=== PATIENT | female | born 1975 | race Caucasian/White ===

== ENCOUNTER 2023-05-01 15:04 | Outpatient (CLI) | payer MEDICAID, SELFPAY ==
--- NOTE | 2023-05-01 15:32 | CT_ITS ---
WS: [id number] CT ABDOMEN AND PELVIS NONCONTRAST HISTORY: HEMATURIA TECHNIQUE: Imaging performed through the abdomen and pelvis. Coronal and sagittal reformats are submi tted. All CT scans at [facility] use at least one of these dose optimization techniques: auto mated exposure control; mA and/or kV adjustment per patient size (includes targeted exams where dose is matched to clinical indication); or iterative reconstruction. DLP: 674.50 mGy.cm COMPARISON: None available. Lower thorax: Lung bases are clear. Visualized heart is normal. No hiatal hernia. Liver: Mild hepatomegaly and hepatic steatosis. No bile duct dilatation or mass. Gallbladder: Prior cholecystectomy. Pancreas: Normal size and attenuation. Normal pancreatic duct. No pancreatitis or mass. Spleen: Normal. Adrenal glands: Normal. No mass. Right kidney: Normal size kidney with no mass or hydronephrosis. Left kidney: Normal size kidney with no mass or hydronephrosis. Aorta: Mild atherosclerosis abdominal aorta with no aneurysm. No free fluid, intraperitoneal air or significant lymphadenopathy. GI tract: Normal noncontrast imaging of the stomach, small bowel and colon. No obstruction or wall th ickening. Normal appendix. Abdominal wall: Small umbilical hernia contains fat only. Pelvis: Normal urinary bladder. Normal size anteverted uterus. No free fluid or adenopathy. Osseous structures: Unremarkable. CT/CT kidney stone [id number] IMPRESSION: 1. No renal calcifications or obstruction. No perinephric stranding. 2. Negative urinary bladder. 3. Normal appendix. 4. Umbilical wall hernia contains fat only. 5. Prior cholecystectomy. 6. Hepatomegaly, mild.
== END 2023-05-01 15:05 | disposition home or self-care (01) ==
PROVIDERS: PCP Nurse Practitioner Occupational Health; Visit Provider Nurse Practitioner Occupational Health
DX: R31.9 Hematuria, unspecified (principal)
CPT/HCPCS: 74176

== ENCOUNTER → 2023-06-26 10:26 | Outpatient (BNVA) | payer MEDICAID, SELFPAY | PROVIDERS: PCP Nurse Practitioner Occupational Health; Referring Provider Nurse Practitioner Family; Visit Provider Psychiatry & Neurology Neurology | DX: G40.909 Epilepsy, unspecified, not intractable, without status epilepticus (principal) | CPT/HCPCS: 36415; 80053; 85025 ==

== ENCOUNTER → 2023-07-29 17:04 | Outpatient (BNVA) | payer MEDICAID, SELFPAY | PROVIDERS: PCP Nurse Practitioner Occupational Health; Visit Provider Psychiatry & Neurology Neurology | DX: G40.219 Localization-related (focal) (partial) symptomatic epilepsy and epileptic syndromes with complex partial seizures, intractable, without status epilepticus (principal) | CPT/HCPCS: 36415; 80053; 82607; 82746; 83735; 84439; 84443; 84481 ==

== ENCOUNTER → 2023-10-02 15:05 | Outpatient (BNVA) | payer MEDICAID, SELFPAY | PROVIDERS: PCP Nurse Practitioner Occupational Health; Visit Provider Psychiatry & Neurology Neurology | DX: G40.219 Localization-related (focal) (partial) symptomatic epilepsy and epileptic syndromes with complex partial seizures, intractable, without status epilepticus (principal) | CPT/HCPCS: 36415; 80299 ==

== ENCOUNTER 2024-01-14 13:49 | Inpatient (IN) | payer MEDICAID, SELFPAY ==
[2024-01-14 13:53] VITALS: BP 128/84; PULSE 112; RESP 16; TEMP 36.6; O2SAT 94; BMI 39.6
--- NOTE | 2024-01-14 14:28 | ED.C_ITS ---
HPI - Psych 2 General: Chief Complaint: Psychiatric Symptoms Stated Complaint: SI Time Seen by Provider: 01/14/24 14:04 Source: patient Mode of arrival: ambulatory Limitations: no limitations History of Present Illness: Patient is a 48-year-old female presents to ED today reporting she is suicidal. Patient states a while ago she was convinced by her best friend to move from [place] to [place], [place] with the best friend and her to babysit their child. Patient states since then the best friend has had another child and has now decided to stay home from work and thus does not need me anymore . She states there also has been some instances where her psychiatric health has interfered with their relationship. Patient states she is now homeless as she does not know anybody in [place]. She states she has a plan to overdose on all of her medication. MD complaint: suicidal ideation and feels depressed Onset (ago): day(s) Duration: constant History of same: Yes Context: significant life stressor Associated psychiatric symptoms: depression and suicidal ideation Associated symptoms: Reports depression and suicidal ideation; Deny auditory hallucinations, visual hallucinations or homicidal ideation Treatments prior to arrival: none If self harm: admits thoughts of self harm and has plan Review of Systems 2 Const: Denies: fever(s) or chills Card: Denies: chest pain, palpitations, lightheadedness or syncope Resp: Denies: dyspnea GI: Denies: abdominal pain, nausea, vomiting or diarrhea Skin/Breast: Denies: rash Neuro: Denies: headache(s) Psych: Reports: anxiety, depression, hopelessness and suicidal ideation; Denies: paranoia, visual hallucinations, auditory hallucinations or homicidal ideation [facility] ED 2 PFSH: Social History Smoking and tobacco/nicotine status: never used tobacco/nicotine Alcohol intake: never Substance/Drug Use: never Physical Exam 2 Const: COMMON NORMALS: no acute distress, patient oriented x3, alert and well nourished GENERAL APPEARANCE: cooperative and well kempt Resp: COMMON NORMALS: normal respiratory effort and clear to auscultation bilaterally AUSCULTATION: clear to auscultation bilaterally Cardio: COMMON NORMALS: regular rate and regular rhythm RATE: regular rate RHYTHM: regular rhythm Neuro: COMMON NORMALS: patient oriented x3 SENSORIUM/ORIENTATION: Yes alert Psych: COMMON NORMALS: mental status grossly normal, Normal thought process present, cooperative, normal affect, speech normal, activity/motor behavior normal, denies hallucinations and denies homicidal ideation APPEARANCE: Yes grossly normal and Yes well kempt ATTITUDE: Yes calm ACTIVITY/MOTOR BEHAVIOR: Yes appropriate eye contact and No psychomotor agitation SPEECH: Y es normal speech MOOD & AFFECT: Yes euthymic mood THOUGHT PROCESS: Normal thought process present MEMORY/COGNITION: Yes memory grossly intact and Yes cognition grossly intact INSIGHT: Good insight present (Psych) JUDGEMENT: Good judgement present (Psych) Course 2 Consultations: Consultation #1: Dr. Hunt-accepts to NPU Vital Signs: Vital signs: Vital Signs Temperature 97.8 F 01/14/24 13:53 Pulse Rate 112 H 01/14/24 13:53 Respiratory Rate 16 01/14/24 13:53 Blood Pressure 128/84 01/14/24 13:53 Pulse Oximetry 94 01/14/24 13:53 Oxygen Delivery Me thod Room Air 01/14/24 13:53 [facility] - Psych Medical Decision Making Patient will be a voluntary admit to NPU to Dr. Hunt for treatment of depression and suicidal ideations. Lab Data 01/14/24 14:33 01/14/24 14:33 Laboratory Results WBC 9.90 10^3/uL (3.29-11.43) 01/14/24 14:33 RBC 4.19 10^6/uL (3.85-5.65) 01/14/24 14:33 Hgb 13.10 g/dL (11.27-16.99) 01/14/24 14:33 Hct 39.3 % (36-47) 01/14/24 14:33 MCV 93.8 fl (85-98) 01/14/24 14:33 MCH 31.3 pg (27-33) 01/14/24 14: MCHC 33.3 g/dL (30-55) 01/14/24 14:33 RDW 14.5 % (12.1-15.1) 01/14/24 14:33 Plt Count 236 10^3/cmm (157-399) 01/14/24 14:33 MPV 9.6 fL (7.4-10.4) 01/14/24 14:33 Neut % (Auto) 66.5 % 01/14/24 14:33 Lymph % (Auto) 20.8 % 01/14/24 14:33 Winkler % (Auto) 9.0 % 01/14/24 14:33 Eos % (Auto) 2.0 % 01/14/24 14:33 Baso % (Auto) 0.9 % 01/14/24 14:33 Neut # (Auto) 6.58 10^3/uL (1.8-7.7) 01/14/24 14: Lymph # (Auto) 2.1 10^3/uL (0.8-4.8) 01/14/24 14:33 Winkler # (Auto) 0.9 10^3/uL (0.2-0.9) 01/14/24 14: Eos # (Auto) 0.2 10^3/uL (0.0-0.8) 01/14/24 14: Baso # (Auto) 0.1 10^3/uL (0.0-0.1) 01/14/24 14: Nucleated RBC % (auto) 0 % 01/14/24 14: Nucleated RBCs # 0.0 /100WBC 01/14/24 14:33 Sodium 137 mmol/L (136-145) 01/14/24 14:33 Potassium 4.0 mmol/L (3.5-5.1) 01/14/24 14: Chloride 101 mmol/L (98-107) 01/14/24 14: Carbon Dioxide 24 mmol/L (22-29) 01/14/24 14:33 Anion Gap 16.0 (5-19) 01/14/24 14:33 BUN 14 mg/dL (6-20) 01/14/24 14:33 Creatinine 1.0 mg/dL (0.5-0.9) H 01/14/24 14:33 GFR Calculation 58.7 mL/min (90-130) L 01/14/24 14:33 Glucose 89 mg/dL (65-115) 01/14/24 14:33 Calculated Osmolality 284 mOsm/kg (285-295) L 01/14/24 14:33 Calcium 9.2 mg/dL (8.5-10.5) 01/14/24 14:33 Total Bilirubin 0.3 mg/dL (0.15-1.2) 01/14/24 14:33 AST 21 U/L (0-32) 01/14/24 14:33 ALT 29 U/L (0-33) 01/14/24 14:33 Alkaline Phosphatase 109 U/L (35-105) H 01/14/24 14:33 Total Protein 7.3 g/dL (6.6-8.7) 01/14/24 14:33 Albumin 4.1 g/dL (3.5-5.2) 01/14/24 14:33 Globulin 3.2 g/dL (1.3-4.6) 01/14/24 14:33 Salicylates < 0.3 mg/dL (3-10) L 01/14/24 14:33 Urine Opiates Screen Negative ng/mL (Negative) 01/14/24 14:22 Acetaminophen < 5.0 ug/mL (10-30) L 01/14/24 14:33 Ur Barbiturates Screen Negative ng/mL (Negative) 01/14/24 14:22 Ur Phencyclidine Scrn Negative ng/mL (Negative) 01/14/24 14:22 Ur Amphetamines Screen Negative ng/mL (Negative) 01/14/24 14:22 U Benzodiazepines Scrn Positive ng/mL (Negative) H 01/14/24 14:22 Urine Cocaine Screen Negative ng/mL (Negative) 01/14/24 14:22 U Marijuana (THC) Screen Negative ng/mL (Negative) 01/14/24 14:22 Ethyl Alcohol < 10 mg/dL (0-10) 01/14/24 14:33 No radiology studies performed this visit Discharge Plan Discharge Patient Disposition: Admitted As Inpatient Clinical Impression: Suicidal ideation Depression Qualifiers: Depression Type: major depressive disorder Major depression recurrence: r ecurrent Active/Remission status: currently active Major depression episode severity: severe Psychotic features: without psychotic features Qualified Code(s): F33.2 - Major depressive disorder, recurrent severe without psychotic features Condition: Stable Coding Level of Care Code ED Rodent Control Worker for Angela Wade
[2024-01-14 14:41] LABS: Basophils # 0.1 10^3/uL (0.0-0.1); Basophils % 0.9 %; Eosinophils # 0.2 10^3/uL (0.0-0.8); Hematocrit 39.3 % (36-47); Lymphocytes # 2.1 10^3/uL (0.8-4.8); Lymphocytes % 20.8 %; Mean Corpuscular HGB Conc 33.3 g/dL (30-55); Mean Corpuscular Hemoglobin 31.3 pg (27-33); Mean Corpuscular Volume 93.8 fl (85-98); Mean Platelet Volume 9.6 fL (7.4-10.4); Monocytes # 0.9 10^3/uL (0.2-0.9); Neutrophils # 6.58 10^3/uL (1.8-7.7); Neutrophils % 66.5 %; Nucleated Red Blood Cells % 0 %; Platelet Count 236 10^3/cmm (157-399); Red Blood Count 4.19 10^6/uL (3.85-5.65); Red Cell Distribution Width 14.5 % (12.1-15.1)
[2024-01-14 14:54] LABS: Amphetamines Screen Urine Negative (Negative); Barbiturates Screen Urine Negative (Negative); Benzodiazepines Screen Urine Positive (Negative); Cocaine Screen Urine Negative (Negative); Opiate Screen Urine Negative (Negative); PCP Screen Urine Negative (Negative); THC Screen Urine Negative (Negative)
[2024-01-14 14:55] LABS: Alanine Aminotransferase 29 U/L (0-33); Albumin Level 4.1 g/dL (3.5-5.2); Alkaline Phosphatase 109 U/L (35-105); Aspartate Amino Transferase 21 U/L (0-32); Blood Urea Nitrogen 14 mg/dL (6-20); Calcium 9.2 mg/dL (8.5-10.5); Carbon Dioxide 24 mmol/L (22-29); Chloride 101 mmol/L (98-107); Globulin 3.2 g/dL (1.3-4.6); Glomerular Filtration Rate 58.7 mL/min (90-130); Glucose 89 mg/dL (65-115); Osmolality Calculated 284 mOsm/kg (285-295); Sodium 137 mmol/L (136-145); Total Bilirubin 0.3 mg/dL (0.15-1.2); Total Protein 7.3 g/dL (6.6-8.7)
[2024-01-14 14:57] LABS: Acetaminophen < 5.0 ug/mL (10-30); Alcohol Level < 10 mg/dL (0-10); Salicylate < 0.3 mg/dL (3-10)
[2024-01-14 16:03] VITALS: BP 77/50; PULSE 118; RESP 18; TEMP 36.3; O2SAT 98
--- NOTE | 2024-01-14 17:30 | PC.NURSE ---
Admission Note. pt is a 48 yo female that arrived by wheelchair from ER at 1603. Pt stated she came in today because she cant go on living. Pt states that she is recently homeless and she cant take living anymore. Pt stated i had a plan to go and get 2 gallons of chocolate milk to make the pills go down easier and i would take every pill i had. Pt has a hx of past suicide attempts she tried to jump in front of traffic and she tried to gas herself. Pts medical hx includes chronic fatigue syndrome, seizure disorder, and celiac disease. Pt stated that she thinks she has been having visual hallucinations, she stated i have been seeing a armadillo everywhere but it disappears. During admission assessment pt denies SI/HI and denies having any auditory or visual hallucinations at this time.
[2024-01-14] MEDS: hyDROXYzine 25 mg Capsule 50 MG PO (17:54)
[2024-01-14 19:47] VITALS: BP 135/90; PULSE 109; RESP 18; TEMP 37; O2SAT 95
[2024-01-14] MEDS: prazosin 5 mg Capsule PO (20:07)
[2024-01-14] MEDS: lithium carbonate ER 450 mg Tablet PO (20:07)
[2024-01-14] MEDS: mirtazapine 30 mg Tablet PO (20:07)
[2024-01-14] MEDS: lacosamide 50 mg Tablet 200 MG PO (20:07)
[2024-01-14] MEDS: OLANZapine 10 mg TABLET 20 MG PO (20:07)
[2024-01-15 06:00] VITALS: BP 115/78; PULSE 106; RESP 18; TEMP 36.6; O2SAT 94
[2024-01-15] MEDS: lacosamide 50 mg Tablet 100 MG PO (06:08)
[2024-01-15] MEDS: lithium carbonate ER 450 mg Tablet PO ×2 (07:32→20:24)
[2024-01-15] MEDS: buPROPion XL (24 HR) 150 mg Tablet PO (07:32)
[2024-01-15] MEDS: loperamide 2 mg Capsule PO (08:59)
[2024-01-15] MEDS: LORazepam 2 mg Tablet PO (11:43)
[2024-01-15 14:00] VITALS: BP 123/85; PULSE 96; RESP 16; TEMP 36.6; O2SAT 97
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
[2024-01-15] MEDS: prazosin 5 mg Capsule PO (20:23)
[2024-01-15] MEDS: lacosamide 50 mg Tablet 200 MG PO (20:24)
[2024-01-15] MEDS: OLANZapine 10 mg TABLET 20 MG PO (20:24)
[2024-01-15] MEDS: mirtazapine 30 mg Tablet PO (20:24)
[2024-01-15 21:14] VITALS: BP 127/78; PULSE 94; RESP 18; TEMP 36.9; O2SAT 97
[2024-01-16 06:00] VITALS: BP 158/84; PULSE 101; RESP 18; TEMP 36.8; O2SAT 95
[2024-01-16] MEDS: buPROPion XL (24 HR) 150 mg Tablet PO (08:44)
[2024-01-16] MEDS: lithium carbonate ER 450 mg Tablet PO ×2 (08:44→19:59)
[2024-01-16] MEDS: lacosamide 50 mg Tablet 100 MG PO (08:45)
[2024-01-16 14:00] VITALS: BP 118/81; PULSE 93; RESP 20; TEMP 36.8; O2SAT 96
[2024-01-16] MEDS: LORazepam 2 mg Tablet PO (14:40)
--- NOTE | 2024-01-16 14:49 | P.NPUPN_ITS ---
Subjective NPU 2 Subjective: patient is a 48-year-old white female with borderline personality traits, and bipolar depression admitted with suicidal ideation. The patient had continued to endorse feeling depressed. She had reported no side effects from her current medication. She had reported feeling relieved that she would get additional help as she had had a visit with staff member from the [facility] to receive additional case management services. She had endorsed some feelings of hopelessness. She had reported having reasonable stability with her manic symptoms but reported that the depression had been more prominent. The patient was informed that she was not currently on a medication to target bipolar depression and the patient had reported a previous trial unsuccessfully with a medication for bipolar depression which was Seroquel. She had endorsed some feelings of sadness and reported some concerns regarding abandonment. She had been interested in alternative options as well for managing her mood and the treatment team had discussed with her the potential benefits of omega-3 fatty acid supplementation for treating bipolar depression. She had continued to endorse low energy. Mental Status Exam 2 MSE Comments: She is a casually dressed female who appeared her stated age. She was alert and oriented to person place time and situation. There was no evidence of any abnormal involuntary motor movements tics or tremors appreciated. There was evidence of mild to moderate psychomotor retardation. Her mood was described as depressed. Her affect was mood congruent and restricted in range today. Her thought process was linear and logical. Thought content showed evidence of suicidal ideation with no plan today. She denied any homicidal ideation. She did not appear to be responding to internal stimuli. There is no clear evidence of delusional thinking. Her speech was normal in regards to rate rhythm and prosody. Her insight was limited. Her judgment is poor. Her impulse control appeared guarded at this time. Vitals/I&O/Wt Last Vital Signs Temp 98.2 F 01/16/24 06:00 Pulse 101 H 01/16/24 06:00 Resp 18 01/16/24 06:00 BP 158/84 01/16/24 06:00 Pulse Ox 95 01/16/24 06:00 O2 Del Method Room Air 01/16/24 06:00 Data NPU 01/14/24 14:33 01/14/24 14:33 A&P Assessment and plan (1) Complex posttraumatic stress disorder: (2) Dysthymia: (3) Borderline personality disorder: (4) Suicidal ideation: Plan 48-year-old female admitted voluntarily with a history of complex PTSD and depression with suicidal ideation with increased stress from recent homelessness and lack of social supports. 1. ?Encourage individual, group and milieu therapy. 2. Recommend sober living treatment at the highest level of care to which the patient is willing to commit. 3. Continue q-15 minute checks for safety 4. Reduce remeron 15mg at night, add latuda 20mg to target bipolar depression, reduce zyprexa to 15mg at night, continue lithium as prescribed. Involuntary Hold Information 2 96 Hour Hold: 96 Hour Involuntary Admission: No Attestations NPU 2 Medical Necessity Statement*: Inpatient hospitalization is medically necessary and deemed to be the clinically appropriate intervention at this time. Medications will be initiated and increased as clinically indicated. Patient's likely length of stay is 3 to 5 days. Coding Level of Care Code Acute Code for g Fwd Diagnoses Complex posttraumatic stress disorder F43.10 Dysthymia F34.1 Borderline personality disorder F60.3 Suicidal ideation R45.851
[2024-01-16] MEDS: lurasidone 20 mg Tablet PO (18:21)
[2024-01-16 19:27] VITALS: BP 120/81; PULSE 98; RESP 16; TEMP 36.5; O2SAT 96
[2024-01-16] MEDS: lacosamide 50 mg Tablet 200 MG PO (19:58)
[2024-01-16] MEDS: mirtazapine 30 mg Tablet 15 MG PO (19:58)
[2024-01-16] MEDS: prazosin 5 mg Capsule PO (19:59)
[2024-01-16] MEDS: OLANZapine 10 mg TABLET 15 MG PO (19:59)
[2024-01-16] MEDS: acetaminophen 325 mg Tablet 650 MG PO (20:48)
[2024-01-17] MEDS: lacosamide 50 mg Tablet 100 MG PO (05:55)
[2024-01-17 06:00] VITALS: BP 130/81; PULSE 95; RESP 16; TEMP 36.9; O2SAT 95
[2024-01-17] MEDS: buPROPion XL (24 HR) 150 mg Tablet PO (08:17)
[2024-01-17] MEDS: lithium carbonate ER 450 mg Tablet PO ×2 (08:17→20:31)
[2024-01-17 14:00] VITALS: BP 109/95; PULSE 92; RESP 13; TEMP 36.7; O2SAT 95
--- NOTE | 2024-01-17 17:53 | P.NPUPN_ITS ---
Subjective NPU 2 Subjective: patient is a 48-year-old white female with borderline personality traits, and bipolar depression admitted with suicidal ideation. Patient continues to endorse depressed mood. She had reported willingness to consider changes in medication. She had reported lithium was helpful at controlling her moods. She had reported being seizure-free over the past few years. She had reported no worsening mood with the reduction in mirtazapine at this time. We had discussed beginning a cross titration off of Zyprexa and onto Latuda in attempts to help with her bipolar depression. She reported no problems with worsening sleep with the 5 mg reduction in Zyprexa today. Mental Status Exam 2 MSE Comments: She is a casually dressed female who appeared her stated age. She was alert and oriented to person place time and situation. There was no evidence of any abnormal involuntary motor movements tics or tremors appreciated. There was evidence of mild to moderate psychomotor retardation. Her mood was described as depressed. Her affect remained flat. Her thought process was linear and logical. Thought content showed no evidence of suicidal ideation with no plan today. She denied any homicidal ideation. She did not appear to be responding to internal stimuli. There is no clear evidence of delusional thinking. Her speech was normal in regards to rate rhythm and prosody. Her insight was limited. Her judgment is poor. Her impulse control appeared guarded at this time. Vitals/I&O/Wt Last Vital Signs Temp 98.1 F 01/17/24 14:00 Pulse 92 01/17/24 14:00 Resp 13 01/17/24 14:00 BP 109/95 01/17/24 14:00 Pulse Ox 95 01/17/24 14:00 O2 Del Method Room Air 01/17/24 06:00 Data NPU 01/14/24 14:33 01/14/24 14:33 A&P Assessment and plan (1) Complex posttraumatic stress disorder: (2) Dysthymia: (3) Borderline personality disorder: (4) Suicidal ideation: Plan 48-year-old female admitted voluntarily with a history of complex PTSD and depression with suicidal ideation with increased stress from recent homelessness and lack of social supports. 1. ?Encourage individual, group and milieu therapy. 2. Recommend sober living treatment at the highest level of care to which the patient is willing to commit. 3. Continue q-15 minute checks for safety 4.Discontinue remeron 15mg at night, add latuda 20mg to target bipolar depression, reduce zyprexa to 15mg at night, continue lithium as prescribed with plan for lithium level in 3 days. Involuntary Hold Information 2 96 Hour Hold: 96 Hour Involuntary Admission: No Attestations NPU 2 Medical Necessity Statement*: Inpatient hospitalization is medically necessary and deemed to be the clinically appropriate intervention at this time. Medications will be initiated and increased as clinically indicated. Patient's likely length of stay is 3 to 5 days. Coding Level of Care Code Acute Code for g Fwd Diagnoses Complex posttraumatic stress disorder F43.10 Dysthymia F34.1 Borderline personality disorder F60.3 Suicidal ideation R45.851
[2024-01-17] MEDS: lurasidone 20 mg Tablet PO (17:59)
[2024-01-17] MEDS: lacosamide 50 mg Tablet 200 MG PO (20:31)
[2024-01-17] MEDS: OLANZapine 10 mg TABLET 15 MG PO (20:31)
[2024-01-17] MEDS: prazosin 5 mg Capsule PO (20:32)
[2024-01-17 20:39] VITALS: BP 129/84; PULSE 92; RESP 18; TEMP 36.8; O2SAT 94
[2024-01-18 06:00] VITALS: BP 99/66; PULSE 96; RESP 16; TEMP 36.7; O2SAT 91
[2024-01-18] MEDS: lacosamide 50 mg Tablet 100 MG PO (06:15)
[2024-01-18] MEDS: lithium carbonate ER 450 mg Tablet PO ×2 (07:58→19:58)
[2024-01-18] MEDS: buPROPion XL (24 HR) 150 mg Tablet PO (07:58)
--- NOTE | 2024-01-18 13:27 | P.NPUPN_ITS ---
Subjective NPU 2 Subjective: patient is a 48-year-old white female with borderline personality traits, and bipolar depression admitted with suicidal ideation. The patient had reported that she had slept adequately. She reported that she still felt sad. She was quiet and redirectable on the milieu. She had attended groups. She reported that she was hopeful about receiving additional services and excited about starting psychotherapy again on an outpatient basis. The patient had reported no decline in mood with the discontinuation of Remeron last night. The patient reported continued lack of interest in completing daily activities and reported feeling lethargic. Mental Status Exam 2 MSE Comments: She is a casually dressed female who appeared her stated age. She was alert and oriented to person place time and situation. There was no evidence of any abnormal involuntary motor movements tics or tremors appreciated. There was evidence of mild to moderate psychomotor retardation. Her mood was depressed. Her affect remained restricted in range and mood congruent. Her thought process was linear and logical. Thought content showed no evidence of suicidal ideation with no plan today. She denied any homicidal ideation. She did not appear to be responding to internal stimuli. There is no clear evidence of delusional thinking. Her speech was normal in regards to rate rhythm and prosody. Her insight was limited. Her judgment is poor. Her impulse control appeared guarded at this time. Vitals/I&O/Wt Last Vital Signs Temp 98.0 F 01/18/24 06:00 Pulse 96 01/18/24 06:00 Resp 16 01/18/24 06:00 BP 99/66 01/18/24 06:00 Pulse Ox 91 01/18/24 06:00 O2 Del Method Room Air 01/18/24 06:00 Data NPU 01/14/24 14:33 01/14/24 14:33 A&P Assessment and plan (1) Complex posttraumatic stress disorder: (2) Dysthymia: (3) Borderline personality disorder: (4) Suicidal ideation: Plan 48-year-old female admitted voluntarily with a history of complex PTSD and depression with suicidal ideation with increased stress from recent homelessness and lack of social supports. 1. ?Encourage individual, group and milieu therapy. 2. Recommend sober living treatment at the highest level of care to which the patient is willing to commit. 3. Continue q-15 minute checks for safety 4. Initiate latuda at 40mg and decrease zyprexa to 10mg at night , continue lithium as prescribed with plan for lithium level tommorow. Patient's GFR is less than 60 (58.7) which may be a concern as a marker for potential CKD in future. Involuntary Hold Information 2 96 Hour Hold: 96 Hour Involuntary Admission: No Attestations NPU 2 Medical Necessity Statement*: Inpatient hospitalization is medically necessary and deemed to be the clinically appropriate intervention at this time. Medications will be initiated and increased as clinically indicated. Patient's likely length of stay is 3 to 5 days. Coding Level of Care Code Acute Code for Chg Fwd Diagnoses Complex posttraumatic stress disorder F43.10 Dysthymia F34.1 Borderline personality disorder F60.3 Suicidal ideation R45.851
[2024-01-18 14:00] VITALS: BP 112/76; PULSE 84; RESP 16; TEMP 37.1; O2SAT 94
[2024-01-18] MEDS: LORazepam 2 mg Tablet PO (14:26)
[2024-01-18] MEDS: lurasidone 20 mg Tablet 40 MG PO (18:08)
[2024-01-18] MEDS: OLANZapine 10 mg TABLET PO (19:58)
[2024-01-18] MEDS: lacosamide 50 mg Tablet 200 MG PO (19:59)
[2024-01-18] MEDS: prazosin 5 mg Capsule PO (19:59)
[2024-01-18 20:13] VITALS: BP 125/87; PULSE 99; RESP 18; TEMP 36.4; O2SAT 94
[2024-01-19 06:00] VITALS: BP 111/77; PULSE 92; RESP 16; TEMP 36.8; O2SAT 95
[2024-01-19] MEDS: lacosamide 50 mg Tablet 100 MG PO (06:00)
[2024-01-19] MEDS: lithium carbonate ER 450 mg Tablet PO ×2 (08:55→20:00)
[2024-01-19] MEDS: buPROPion XL (24 HR) 150 mg Tablet PO (08:55)
[2024-01-19 10:02] LABS: Chol HDL Ratio 3.69 mg/dL (0.0-4.40); Cholesterol 188 mg/dL (0-200); HDL Cholesterol 51 mg/dL (60-100); LDL Cholesterol Calculated 101 mg/dL (50-129); LDL HDL Ratio 1.98 RATIO (0.00-3.22); Lithium 0.6 mmol/L (0.6-1.2); Triglycerides 180 mg/dL (0-150)
[2024-01-19 14:00] VITALS: BP 114/82; PULSE 83; RESP 16; TEMP 36.8; O2SAT 99
[2024-01-19] MEDS: LORazepam 2 mg Tablet PO (15:03)
--- NOTE | 2024-01-19 17:36 | P.NPUPN_ITS ---
Subjective NPU 2 Subjective: patient is a 48-year-old white female with borderline personality traits, and bipolar depression admitted with suicidal ideation. Patient had reported feeling more depressed today. She had reported some feelings of hopelessness. She reported having days in the past like this and stated that she often struggles with getting out of bed. She had been more isolative today on the milieu. She had reported that she was able to attend groups. Patient was informed of some concern regarding lithium with her decreased glomerular filtration rate. She reported no difference in regards to sleep with the reduction in Zyprexa. She did not endorse any manic symptoms. She had reported no thoughts of self injury. Mental Status Exam 2 MSE Comments: She is a casually dressed female who appeared her stated age. She was alert and oriented to person place time and situation. There was no evidence of any abnormal involuntary motor movements tics or tremors appreciated. There was evidence of moderate psychomotor retardation. Her mood was reported as more sad today. Her affect remained restricted in range and mood congruent. Her thought process was linear and logical. Thought content showed no evidence of suicidal ideation with no plan today. She denied any homicidal ideation. She did not appear to be responding to internal stimuli. There is no clear evidence of delusional thinking. Her speech was normal in regards to rate rhythm and prosody. Her insight was limited. Her judgment is poor. Her impulse control appeared guarded at this time. Vitals/I&O/Wt Last Vital Signs Temp 98.3 F 01/19/24 14:00 Pulse 83 01/19/24 14:00 Resp 16 01/19/24 14:00 BP 114/82 01/19/24 14:00 Pulse Ox 99 01/19/24 14:00 O2 Del Method Room Air 01/19/24 14:00 Weight last 48 hrs Weight 97.636 kg Data NPU 01/14/24 14:33 01/14/24 14:33 A&P Assessment and plan (1) Complex posttraumatic stress disorder: (2) Dysthymia: (3) Borderline personality disorder: (4) Suicidal ideation: Plan 48-year-old female admitted voluntarily with a history of complex PTSD and depression with suicidal ideation with increased stress from recent homelessness and lack of social supports. 1. ?Encourage individual, group and milieu therapy. 2. Recommend sober living treatment at the highest level of care to which the patient is willing to commit. 3. Continue q-15 minute checks for safety 4. Continue latuda at 40mg and zyprexa to 10mg at night , lithium as prescribed with patient lithium level therapeutic at .6, patient has elevated TG at 180 and may benefit from EPA/DHA to target elevated TG. Patient's GFR is less than 60 (58.7) which may be a concern as a marker for potential CKD in future. MAY SWITCH To Immediate Release [place] to help with potential kidney issues. Involuntary Hold Information 2 96 Hour Hold: 96 Hour Involuntary Admission: No Attestations NPU 2 Medical Necessity Statement*: Inpatient hospitalization is medically necessary and deemed to be the clinically appropriate intervention at this time. Medications will be initiated and increased as clinically indicated. Patient's likely length of stay is 3 to 5 days. Coding Level of Care Code Acute Code for Chg Fwd Diagnoses Complex posttraumatic stress disorder F43.10 Dysthymia F34.1 Borderline personality disorder F60.3 Suicidal ideation R45.851
[2024-01-19] MEDS: lurasidone 20 mg Tablet 40 MG PO (18:01)
[2024-01-19] MEDS: lacosamide 50 mg Tablet 200 MG PO (20:00)
[2024-01-19] MEDS: OLANZapine 10 mg TABLET PO (20:00)
[2024-01-19] MEDS: prazosin 5 mg Capsule PO (20:00)
[2024-01-19 20:26] VITALS: BP 106/72; PULSE 85; RESP 18; TEMP 36.3; O2SAT 96
[2024-01-20 06:00] VITALS: BP 110/73; PULSE 89; RESP 16; TEMP 36.3; O2SAT 95
[2024-01-20] MEDS: lacosamide 50 mg Tablet 100 MG PO (06:03)
[2024-01-20] MEDS: lithium carbonate ER 450 mg Tablet PO (08:28)
[2024-01-20] MEDS: buPROPion XL (24 HR) 150 mg Tablet PO (08:28)
[2024-01-20] MEDS: LORazepam 2 mg Tablet PO (12:35)
[2024-01-20 12:40] VITALS: BP 124/88; PULSE 105; RESP 14; TEMP 36.6; O2SAT 96
--- NOTE | 2024-01-20 15:30 | P.NPUPN_ITS ---
Subjective NPU 2 Subjective: patient is a 48-year-old white female with borderline personality traits, and bipolar depression admitted with suicidal ideation. The patient reported no side effects from her medications. She reported no change in sleep patterns with the continued tapering of Zyprexa. Patient reported no feelings of hopelessness. She had been less isolative on the milieu. She reported that she was happy about having a place to stay upon discharge. She reported no feelings of hopelessness. Patient was agreeable to changing lithium to immediate release in an attempt to help with the patient's potential risk of chronic kidney disease which appeared to be higher when taking the extended release version of lithium. Patient reported no change in appetite. Mental Status Exam 2 MSE Comments: She is a casually dressed female who appeared her stated age. She was alert and oriented to person place time and situation. There was no evidence of any abnormal involuntary motor movements tics or tremors appreciated. There was evidence of mild psychomotor retardation. Her mood was reported as okay today. Her affect remained restricted in range and mood congruent. Her thought process was linear and logical. Thought content showed no evidence of suicidal ideation with no plan today. She denied any homicidal ideation. She did not appear to be responding to internal stimuli. There is no clear evidence of delusional thinking. Her speech was normal in regards to rate rhythm and prosody. Her insight was limited. Her judgment is poor. Her impulse control appeared guarded at this time. Vitals/I&O/Wt Last Vital Signs Temp 97.8 F 01/20/24 12:40 Pulse 105 H 01/20/24 12:40 Resp 14 01/20/24 12:40 BP 124/88 01/20/24 12:40 Pulse Ox 96 01/20/24 12:40 O2 Del Method Room Air 01/20/24 06:00 Weight last 48 hrs Weight 97.636 kg Data NPU 01/14/24 14:33 01/14/24 14:33 A&P Assessment and plan (1) Complex posttraumatic stress disorder: (2) Dysthymia: (3) Borderline personality disorder: (4) Suicidal ideation: Plan 48-year-old female admitted voluntarily with a history of complex PTSD and depression with suicidal ideation with increased stress from recent homelessness and lack of social supports. 1. ?Encourage individual, group and milieu therapy. 2. Recommend sober living treatment at the highest level of care to which the patient is willing to commit. 3. Continue q-15 minute checks for safety 4. Continue latuda at 40mg and zyprexa to 10mg at night , Switch to lithium 300mg tid today. Involuntary Hold Information 2 96 Hour Hold: 96 Hour Involuntary Admission: No Attestations NPU 2 Medical Necessity Statement*: Inpatient hospitalization is medically necessary and deemed to be the clinically appropriate intervention at this time. Medications will be initiated and increased as clinically indicated. Patient's likely length of stay is 3 to 5 days. Coding Level of Care Code Acute Code for Chg Fwd Diagnoses Complex posttraumatic stress disorder F43.10 Dysthymia F34.1 Borderline personality disorder F60.3 Suicidal ideation R45.851
[2024-01-20] MEDS: lurasidone 20 mg Tablet 40 MG PO (18:30)
[2024-01-20 20:11] VITALS: BP 117/78; PULSE 102; RESP 18; TEMP 36.8; O2SAT 96
[2024-01-20] MEDS: OLANZapine 10 mg TABLET PO (20:44)
[2024-01-20] MEDS: lithium carbonate 300 mg Capsule PO (20:44)
[2024-01-20] MEDS: lacosamide 50 mg Tablet 200 MG PO (20:44)
[2024-01-20] MEDS: prazosin 5 mg Capsule PO (20:44)
[2024-01-21 06:00] VITALS: BP 111/75; PULSE 88; RESP 16; TEMP 35.8; O2SAT 94
[2024-01-21] MEDS: lacosamide 50 mg Tablet 100 MG PO (06:13)
[2024-01-21] MEDS: lithium carbonate 300 mg Capsule PO ×2 (08:03→14:38)
[2024-01-21] MEDS: buPROPion XL (24 HR) 150 mg Tablet PO (08:03)
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
[2024-01-21 13:04] VITALS: BP 111/75; PULSE 88; RESP 16; TEMP 35.8; O2SAT 94
== END 2024-01-21 15:30 | disposition home or self-care (01) | DRG 882 ==
LOC: ER 15:15 → NP 15:32
PROVIDERS: Admitting Provider Psychiatry & Neurology Psychiatry; Emergency Provider Physician Assistant; PCP Nurse Practitioner Occupational Health; Visit Provider Psychiatry & Neurology Psychiatry
DX: F43.10 Post-traumatic stress disorder, unspecified (principal); G40.209 Localization-related (focal) (partial) symptomatic epilepsy and epileptic syndromes with complex partial seizures, not intractable, without status epilepticus; F33.2 Major depressive disorder, recurrent severe without psychotic features; R45.851 Suicidal ideations; Z59.01 Sheltered homelessness; F60.3 Borderline personality disorder; F34.1 Dysthymic disorder; Z81.8 Family history of other mental and behavioral disorders
CPT/HCPCS: 36415; 80053; 80061; 80178; 80306; 80307; 85025; 97150; 97165; 99285

== ENCOUNTER → 2024-01-28 10:55 | Outpatient (BNVA) | payer MEDICAID, SELFPAY | PROVIDERS: PCP Nurse Practitioner Occupational Health; Visit Provider Family Medicine | DX: F31.9 Bipolar disorder, unspecified (principal) | CPT/HCPCS: 80053; 80178 ==

== ENCOUNTER → 2024-02-10 08:46 | Outpatient (BNVA) | payer MEDICAID, SELFPAY | PROVIDERS: PCP Nurse Practitioner Occupational Health; Visit Provider Family Medicine | DX: N93.9 Abnormal uterine and vaginal bleeding, unspecified (principal) | CPT/HCPCS: 81000 ==

== ENCOUNTER → 2024-07-29 08:54 | Outpatient (BNVA) | payer OTHER, SELFPAY | PROVIDERS: PCP Family Medicine; Visit Provider Nurse Practitioner | DX: F31.81 Bipolar II disorder (principal); F43.10 Post-traumatic stress disorder, unspecified; F60.3 Borderline personality disorder | CPT/HCPCS: 80061; 83036 ==

== ENCOUNTER → 2024-08-13 08:52 | Outpatient (BNVA) | payer MEDICAID, SELFPAY | PROVIDERS: PCP Family Medicine; Visit Provider Nurse Practitioner | DX: Z79.899 Other long term (current) drug therapy (principal) | CPT/HCPCS: 80178 ==

== ENCOUNTER 2025-01-05 17:18 | Inpatient (IN) | payer MEDICAID, SELFPAY ==
[2024-08-26 13:46] VITALS: BP 124/73; BMI 40.7
[2025-01-05 17:20] VITALS: BP 114/82; PULSE 83; TEMP 37.4; O2SAT 93
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
--- NOTE | 2025-01-05 17:54 | ECG_ITS ---
[facility] Test Date: 2025-01-05 Pat Name: Tamar Monroe Department: Room: Gender: Female Secondary Special Education Teacher: : 1975 Requested By: Jed Zamroa Order Number: [id number] Joi MD: Spike Mercer M.D. Measurements Intervals Victoria Rate: 79 P: 34 LA: 150 QRS: 61 QRSD: 84 T: 14 QT: 358 QTc: 412 Interpretive Statements SINUS RHYTHM POSSIBLE ANTERIOR MYOCARDIAL INFARCTION , PROBABLY OLD [30 ms Q WAVE IN V3/V4, OR R < 0.2 mV IN V4] No previous ECG available for comparison Electronically Signed On 01-07-2025 22:02:22 [employer]ASUREMENTS ENGINEER by Spike Mercer M.D. [email or web address]
[2025-01-05 18:19] LABS: Basophils # 0.1 10^3/uL (0.0-0.1); Basophils % 1.1 %; Eosinophils # 0.4 10^3/uL (0.0-0.8); Eosinophils % 4.4 %; Hematocrit 45.2 % (36-47); Lymphocytes # 2.3 10^3/uL (0.8-4.8); Lymphocytes % 27.1 %; Mean Corpuscular HGB Conc 32.7 g/dL (30-55); Mean Corpuscular Hemoglobin 29.1 pg (27-33); Monocytes # 0.8 10^3/uL (0.2-0.9); Monocytes % 9.1 %; Neutrophils # 4.87 10^3/uL (1.8-7.7); Neutrophils % 57.9 %; Nucleated Red Blood Cells % 0 %; Platelet Count 279 10^3/cmm (157-399); Red Blood Count 5.08 10^6/uL (3.85-5.65); Red Cell Distribution Width 13.6 % (12.1-15.1); White Blood Count 8.39 10^3/uL (3.29-11.43)
--- NOTE | 2025-01-05 18:22 | PC.NURSE ---
96 hour hold rights read and reviewed with patient. Clint from security present during reading of rights. Patient verbalized understandings and copy of rights given to patient.
[2025-01-05 18:25] LABS: Amphetamines Screen Urine Negative (Negative); Barbiturates Screen Urine Negative (Negative); Benzodiazepines Screen Urine Positive (Negative); Cocaine Screen Urine Negative (Negative); Opiate Screen Urine Negative (Negative); PCP Screen Urine Negative (Negative); THC Screen Urine Negative (Negative)
[2025-01-05 18:34] LABS: Alanine Aminotransferase 36 U/L (0-33); Albumin Level 4.3 g/dL (3.5-5.2); Alkaline Phosphatase 104 U/L (35-105); Anion Gap 13.7 (5-19); Aspartate Amino Transferase 33 U/L (0-32); Blood Urea Nitrogen 13 mg/dL (6-20); Calcium 9.9 mg/dL (8.5-10.5); Carbon Dioxide 25 mmol/L (22-29); Chloride 103 mmol/L (98-107); Creatinine Clr Calc Pharmacy 70.1671; Globulin 3.2 g/dL (1.3-4.6); Glomerular Filtration Rate 58.5 mL/min (90-130); Glucose 110 mg/dL (65-115); Osmolality Calculated 287 mOsm/kg (285-295); Potassium 3.7 mmol/L (3.5-5.1); Sodium 138 mmol/L (136-145); Total Bilirubin 0.4 mg/dL (0.15-1.2); Total Protein 7.5 g/dL (6.6-8.7)
[2025-01-05 18:35] LABS: Acetaminophen < 5.0 ug/mL (10-30); Alcohol Level < 10 mg/dL (0-10); Salicylate < 0.3 mg/dL (3-10)
[2025-01-05 20:41] VITALS: BP 121/71; PULSE 83; O2SAT 98
[2025-01-05 20:53] VITALS: BP 116/80; PULSE 64; RESP 18; TEMP 37.1; O2SAT 95
[2025-01-05 22:00] VITALS: BP 116/80; PULSE 64; RESP 18; TEMP 37.1; O2SAT 95
[2025-01-05] MEDS: lithium carbonate 300 mg Capsule PO (22:49)
[2025-01-05] MEDS: OLANZapine 5 mg TABLET 2.5 MG PO (22:50)
[2025-01-05] MEDS: prazosin 5 mg Capsule PO (22:51)
[2025-01-05] MEDS: lacosamide 50 mg Tablet 200 MG PO (23:36)
[2025-01-06 06:00] VITALS: BP 103/68; PULSE 85; RESP 18; TEMP 36.4; O2SAT 96
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
[2025-01-06] MEDS: lithium carbonate 300 mg Capsule PO ×3 (08:58→21:06)
[2025-01-06] MEDS: hyDROXYzine 25 mg Capsule 50 MG PO (08:59)
[2025-01-06] MEDS: escitalopram 10 mg Tablet 20 MG PO (08:59)
[2025-01-06] MEDS: lacosamide 50 mg Tablet 100 MG PO (08:59)
[2025-01-06] MEDS: haloperidol 5 mg Tablet PO (08:59)
[2025-01-06] MEDS: lurasidone 20 mg Tablet 120 MG PO (08:59)
[2025-01-06 14:00] VITALS: BP 117/87; PULSE 97; RESP 18; TEMP 36.6; O2SAT 97
--- NOTE | 2025-01-06 15:16 | PC.NURSE ---
SPOKE TO DR. CANELA FOR CLARIFICATION ON LITHIUM LEVEL THAT WAS ORDERED FOR TONIGHT. NEW ORDERS TO DISCONTINUE LITHIUM LEVEL FOR TONIGHT AND TO RESCHEDULE LITHIUM LEVEL FOR 0800 AM ON 01/07/2025 AND TO HOLD 0900 AM DOSE OF LITHIUM UNTIL THE LEVEL IS DRAWN. ORDERS PLACED AND LAB INFORMED OF NEW ORDERS.
[2025-01-06] MEDS: LORazepam 1 mg Tablet PO (17:53)
[2025-01-06 19:46] VITALS: BP 120/79; PULSE 78; RESP 18; TEMP 36.9; O2SAT 94
[2025-01-06] MEDS: lacosamide 50 mg Tablet 200 MG PO (21:05)
[2025-01-06] MEDS: prazosin 5 mg Capsule PO (21:05)
[2025-01-06] MEDS: OLANZapine 5 mg TABLET 2.5 MG PO (21:06)
[2025-01-07 06:00] VITALS: BP 136/91; PULSE 64; RESP 17; TEMP 36.4; O2SAT 94
--- NOTE | 2025-01-07 08:51 | PC.NURSE ---
CONTINUES TO REPORT HEARING VOICES, SEEING FIGURES AND FEELING LIKE PEOPLE ARE BEHIND HER. DENIES HI, STATES SHE HAS CONSTANT THOUGHTS OF SI WITH NO ACTIVE PLAN. APPEARS TO BE IN BETTER SPIRITS TODAY. RATES ANXIETY 05/11 VISTARIL 50 MG WAS GIVEN ORDERED FOR ANXIETY. RATES DEPRESSION 07/11. SUPPORT VOICED.
[2025-01-07] MEDS: escitalopram 10 mg Tablet 20 MG PO (08:55)
[2025-01-07] MEDS: hyDROXYzine 25 mg Capsule 50 MG PO ×2 (08:55→21:16)
[2025-01-07] MEDS: lurasidone 20 mg Tablet 120 MG PO (08:55)
[2025-01-07] MEDS: lacosamide 50 mg Tablet 100 MG PO (08:55)
[2025-01-07] MEDS: lithium carbonate 300 mg Capsule PO ×3 (08:55→21:15)
[2025-01-07] MEDS: haloperidol 5 mg Tablet PO (13:20)
[2025-01-07 14:00] VITALS: BP 102/76; PULSE 78; RESP 18; TEMP 36.6; O2SAT 98
--- NOTE | 2025-01-07 17:52 | P.NPUPN_ITS ---
Subjective NPU 2 Subjective: Patient presented today reporting that things are going fine. We discussed talking to her outpatient provider and there being concerns about the Ativan. She seemed to be resistant to that being an issue. We discussed the risk benefits and alternatives of cleaning up her medications by discontinuing Zyprexa and starting Invega with a plan to likely discontinue Latuda and lithium. She understood and agreed to proceed as is documented in this note. She denied any side effects to the medication. Mental Status Exam 2 MSE Comments: This is an obese versus morbidly obese white female in hospital scrubs with limited grooming but adequate eye contact. No abnormal movements except for mild to moderate psychomotor retardation. Cooperative with exam in mild to moderate distress. Speech was decreased rate and volume. Mood described as depressed and anxious, affect congruent and subdued. Thought process organized. Thought content: Patient denied suicidal or homicidal ideation currently, there were no delusions reported but some paranoia noted, she endorsed auditory and possibly visual hallucinations. Attention and concentration were mostly intact and memory appeared mostly reliable but at times seemed chronologically off but no more formally tested. She is alert and oriented x 3. Her insight was limited. Her judgment is impaired her impulse control appeared limited Vitals/I&O/Wt Last Vital Signs Temp 98.6 F 01/07/25 20:21 Pulse 68 01/07/25 20:21 Resp 17 01/07/25 20:21 BP 132/88 01/07/25 20:21 Pulse Ox 97 01/07/25 20:21 O2 Del Method Room Air 01/07/25 20:21 Data NPU 01/05/25 17:59 01/05/25 17:59 A&P Assessment and plan (1) Complex posttraumatic stress disorder: (2) Dysthymia: (3) Borderline personality disorder: (4) Suicidal ideation: Plan 48-year-old female admitted on a 96-hour hold with past hospitalization about a year ago here with a history of complex PTSD and depression with suicidal ideation with with reported resolution of her homelessness and poor adherence to her medication but worsening symptoms. 1. Continue current medications we will evaluate for changes and some likely increases. Increase Lexapro to 30 mg p.o. daily and will discontinue Zyprexa. Will start Invega and consider discontinuing lithium and Latuda to try to remove clean up the polypharmacy. 2. Encourage individual, group and milieu therapy. 3. Continue every 15 minute checks for safety. 4. Obtain collateral information. PDMP PDMP Reviewed: Not Reviewed Involuntary Hold Information 2 96 Hour Hold: 96 Hour Involuntary Admission: Yes 96 Hour Hold Ending Date: 01/11/25 96 Hour Hold Ending Time: 17:47 Other Hold: Hold End Date: 01/11/25 Attestations NPU 2 Medical Necessity Statement*: Inpatient hospitalization is medically necessary and the clinically appropriate intervention at this time. Medications will be initiated and increased as clinically indicated. Patient's likely length of stay is 4-6 days. Coding Level of Care Code Acute Code for Chg Fwd Diagnoses Complex posttraumatic stress disorder F43.10 Dysthymia F34.1 Borderline personality disorder F60.3 Suicidal ideation R45.851
[2025-01-07 20:21] VITALS: BP 132/88; PULSE 68; RESP 17; TEMP 37; O2SAT 97
[2025-01-07] MEDS: lacosamide 50 mg Tablet 200 MG PO (21:15)
[2025-01-07] MEDS: trazodone 50 mg Tablet PO (21:16)
[2025-01-07] MEDS: OLANZapine 5 mg TABLET 2.5 MG PO (21:16)
[2025-01-07] MEDS: prazosin 5 mg Capsule PO (21:17)
[2025-01-08 06:00] VITALS: BP 113/68; PULSE 62; RESP 17; O2SAT 95
[2025-01-08] MEDS: lacosamide 50 mg Tablet 100 MG PO (09:02)
[2025-01-08] MEDS: lithium carbonate 300 mg Capsule PO ×3 (09:02→21:45)
[2025-01-08] MEDS: lurasidone 20 mg Tablet 120 MG PO (09:02)
[2025-01-08] MEDS: escitalopram 10 mg Tablet 30 MG PO (09:02)
--- NOTE | 2025-01-08 13:22 | P.NPUPN_ITS ---
Subjective NPU 2 Subjective: Patient presented today reporting that things are going okay but she is struggling with the idea of what to do. She reports that she thinks about leaving and we discussed the fact that leading creates a reality we were not able to actually make an impact on the issues that she presented with. We discussed the plan of initiating the Invega and discontinuing the Zyprexa and starting to lower the Latuda with an alternative plan to also discontinue lithium after discussing the risks, benefits and alternatives she understood and agreed to proceed as is documented in this note. She denied any side effects to her medication. Mental Status Exam 2 MSE Comments: This is an obese versus morbidly obese white female in hospital scrubs with limited grooming but adequate eye contact. No abnormal movements except for mild to moderate psychomotor retardation. Cooperative with exam in mild to moderate distress. Speech was decreased rate and volume. Mood described as depressed and anxious, affect congruent and subdued. Thought process organized. Thought content: Patient denied suicidal or homicidal ideation currently, there were no delusions reported but some paranoia noted, she endorsed auditory and possibly visual hallucinations. Attention and concentration were mostly intact and memory appeared mostly reliable but at times seemed chronologically off but no more formally tested. She is alert and oriented x 3. Her insight was limited. Her judgment is impaired her impulse control appeared limited Vitals/I&O/Wt Last Vital Signs Temp 98.6 F 01/07/25 20:21 Pulse 62 01/08/25 06:00 Resp 17 01/08/25 06:00 BP 113/68 01/08/25 06:00 Pulse Ox 95 01/08/25 06:00 O2 Del Method Room Air 01/08/25 06:00 Data NPU 01/05/25 17:59 01/05/25 17:59 A&P Assessment and plan (1) Complex posttraumatic stress disorder: (2) Dysthymia: (3) Borderline personality disorder: (4) Suicidal ideation: Plan 48-year-old female admitted on a 96-hour hold with past hospitalization about a year ago here with a history of complex PTSD and depression with suicidal ideation with with reported resolution of her homelessness and poor adherence to her medication but worsening symptoms. 1. Continue current medications we will evaluate for changes and some likely increases. Increase Lexapro to 30 mg p.o. daily and will discontinue Zyprexa. Will start Invega and consider discontinuing lithium and Latuda to try to remove clean up the polypharmacy. 2. Encourage individual, group and milieu therapy. 3. Continue every 15 minute checks for safety. 4. Obtain collateral information. PDMP PDMP Reviewed: Not Reviewed Involuntary Hold Information 2 96 Hour Hold: 96 Hour Involuntary Admission: Yes 96 Hour Hold Ending Date: 01/11/25 96 Hour Hold Ending Time: 17:47 Other Hold: Hold End Date: 01/11/25 Attestations NPU 2 Medical Necessity Statement*: Inpatient hospitalization is medically necessary and the clinically appropriate intervention at this time. Medications will be initiated and increased as clinically indicated. Patient's likely length of stay is 4-6 days. Coding Level of Care Code Acute Code for [facility] Fwd Diagnoses Complex posttraumatic stress disorder F43.10 Dysthymia F34.1 Borderline personality disorder F60.3 Suicidal ideation R45.851
[2025-01-08 14:00] VITALS: BP 115/80; PULSE 74; RESP 18; TEMP 36.6; O2SAT 94
[2025-01-08] MEDS: ibuprofen 600 mg Tablet PO (16:28)
[2025-01-08] MEDS: lacosamide 50 mg Tablet 200 MG PO (21:45)
[2025-01-08] MEDS: hyDROXYzine 25 mg Capsule 50 MG PO (21:45)
[2025-01-08] MEDS: trazodone 50 mg Tablet PO (21:45)
[2025-01-08] MEDS: prazosin 5 mg Capsule PO (21:45)
[2025-01-08 22:00] VITALS: BP 124/87; PULSE 69; RESP 18; TEMP 36.7; O2SAT 95
[2025-01-09] MEDS: OLANZapine 5 mg ODT PO (02:20)
[2025-01-09 06:00] VITALS: BP 98/73; PULSE 70; RESP 16; TEMP 36.4; O2SAT 95
--- NOTE | 2025-01-09 07:43 | P.NPUPN_ITS ---
Subjective NPU 2 Subjective: She presented today reporting that she is doing fine. She denied any side effects to the changes in her medications but seem very ambivalent about the process we had undertaken. We discussed the importance of her being committed to us working through these changes with the hopes of diminishing the significant polypharmacy and seeing if she can discontinue the Zyprexa, lithium and Latuda and replace it with the Invega. She denied any side effects thus far. Mental Status Exam 2 MSE Comments: This is an obese versus morbidly obese white female in hospital scrubs with limited grooming but adequate eye contact. No abnormal movements except for mild to moderate psychomotor retardation. Cooperative with exam in mild to moderate distress. Speech was decreased rate and volume. Mood described as depressed and anxious, affect congruent and subdued. Thought process organized. Thought content: Patient denied suicidal or homicidal ideation currently, there were no delusions reported but some paranoia noted, she endorsed auditory and possibly visual hallucinations. Attention and concentration were mostly intact and memory appeared mostly reliable but at times seemed chronologically off but no more formally tested. She is alert and oriented x 3. Her insight was limited. Her judgment is impaired her impulse control appeared limited Vitals/I&O/Wt Last Vital Signs Temp 97.5 F L 01/09/25 06:00 Pulse 70 01/09/25 06:00 Resp 16 01/09/25 06:00 BP 98/73 01/09/25 06:00 Pulse Ox 95 01/09/25 06:00 O2 Del Method Room Air 01/08/25 06:00 Data NPU 01/05/25 17:59 01/05/25 17:59 A&P Assessment and plan (1) Complex posttraumatic stress disorder: (2) Dysthymia: (3) Borderline personality disorder: (4) Suicidal ideation: Plan 48-year-old female admitted on a 96-hour hold with past hospitalization about a year ago here with a history of complex PTSD and depression with suicidal ideation with with reported resolution of her homelessness and poor adherence to her medication but worsening symptoms. 1. Continue current medications we will evaluate for changes and some likely increases. Increase Lexapro to 30 mg p.o. daily and will discontinue Zyprexa. Will start Invega and consider discontinuing lithium and Latuda to try to remove clean up the polypharmacy. Started Invega 3 mg p.o. daily and decrease Latuda to 100 mg daily. Will continue to decrease Latuda, increase Invega and consider discontinuation of lithium as well. 2. Encourage individual, group and milieu therapy. 3. Continue every 15 minute checks for safety. 4. Obtain collateral information. PDMP PDMP Reviewed: Not Reviewed Involuntary Hold Information 2 96 Hour Hold: 96 Hour Involuntary Admission: Yes 96 Hour Hold Ending Date: 01/11/25 96 Hour Hold Ending Time: 17:47 Other Hold: Hold End Date: 01/11/25 Attestations NPU 2 Medical Necessity Statement*: Inpatient hospitalization is medically necessary and the clinically appropriate intervention at this time. Medications will be initiated and increased as clinically indicated. Patient's likely length of stay is 4-6 days. Coding Level of Care Code Acute Code for [facility] Fwd Diagnoses Complex posttraumatic stress disorder F43.10 Dysthymia F34.1 Borderline personality disorder F60.3 Suicidal ideation R45.851
[2025-01-09] MEDS: lurasidone 20 mg Tablet 100 MG PO (09:13)
[2025-01-09] MEDS: paliperidone ER 3 mg Tablet PO (09:13)
[2025-01-09] MEDS: lithium carbonate 300 mg Capsule PO ×3 (09:13→21:28)
[2025-01-09] MEDS: escitalopram 10 mg Tablet 30 MG PO (09:13)
[2025-01-09] MEDS: lacosamide 50 mg Tablet 100 MG PO (09:13)
--- NOTE | 2025-01-09 13:30 | PC.NURSE ---
Morning assessment Patient endorses a decrease of AHV. Patient denies suicidal thoughts, homicidal thoughts, and depression. Patient cooperative. Patient's responses are delayed.
[2025-01-09 14:00] VITALS: BP 108/76; PULSE 78; RESP 16; TEMP 36.7; O2SAT 95
[2025-01-09] MEDS: hyDROXYzine 25 mg Capsule 50 MG PO (21:28)
[2025-01-09] MEDS: trazodone 50 mg Tablet PO (21:28)
[2025-01-09] MEDS: prazosin 5 mg Capsule PO (21:28)
[2025-01-09] MEDS: lacosamide 50 mg Tablet 200 MG PO (21:29)
[2025-01-09 21:37] VITALS: BP 119/79; PULSE 77; RESP 18; TEMP 36.3; O2SAT 98
[2025-01-10 05:51] VITALS: BMI 43.2
[2025-01-10 06:00] VITALS: BP 99/68; PULSE 85; RESP 18; TEMP 36.5; O2SAT 96
[2025-01-10] MEDS: lithium carbonate 300 mg Capsule PO ×2 (07:57→15:05)
[2025-01-10] MEDS: escitalopram 10 mg Tablet 30 MG PO (07:57)
[2025-01-10] MEDS: paliperidone ER 3 mg Tablet PO (07:57)
[2025-01-10] MEDS: lurasidone 20 mg Tablet 100 MG PO (07:57)
[2025-01-10] MEDS: lacosamide 50 mg Tablet 100 MG PO (07:58)
[2025-01-10] MEDS: docusate sodium 100 mg Capsule PO (08:25)
[2025-01-10] MEDS: haloperidol 5 mg Tablet PO (08:25)
[2025-01-10] MEDS: hyDROXYzine 25 mg Capsule 50 MG PO ×2 (08:25→20:39)
--- NOTE | 2025-01-10 08:33 | PC.NURSE ---
Morning assessment During morning assessment, patient's speech was delayed; patient had difficulty finding words. Patient endorses visual hallucinations of seeing people behind her door. Patient given haldol 5mg PO. Patient reports an increase in stress, that she wakes up feeling stressed. Patient said that she is worried about her car. Patient rates anxiety 06/10. Patient said that she doesn't want to kill herself but would rather have somebody kill her.
[2025-01-10 14:00] VITALS: BP 114/76; PULSE 75; RESP 16; TEMP 36.9; O2SAT 97
--- NOTE | 2025-01-10 16:51 | P.NPUPN_ITS ---
Subjective NPU 2 Subjective: 49-year-old female with a history of bor derline personality disorder, atypical psychosis and bipolar disorder admitted with the presence of visual hallucinations. The patient had reported that she had been still hearing voices. She had stated that she was seeing spots exploded in the air into colorful dust particles. She had reported that she had seen leprechaun's at home hiding underneath the bushes. She had reported compliance with her medication regimen. She had stated that despite taking 100 mg of Latuda it had not been helpful for her psychotic symptoms. She had endorsed having visual hallucinations more frequently than auditory hallucinations. She had reported no side effects from her Invega at this time. Mental Status Exam 2 MSE Comments: This is an obese versus morbidly obese white female in hospital scrubs with limited grooming but adequate eye contact. No abnormal movements except for mild to moderate psychomotor retardation. She was cooperative with exam in mild to moderate distress. Speech was decreased rate and volume. Mood described as depressed. Her affect was mood incongruent and subdued. Thought process was linear and organized. Thought content: Patient denied suicidal or homicidal ideation currently, there were no delusions reported but some paranoia noted, she endorsed auditory hallucinations and reported seeing leprecauns. Attention and concentration were mostly intact and memory appeared mostly reliable but at times seemed chronologically off but no more formally tested. She is alert and oriented x 3. Her insight was limited. Her judgment is impaired her impulse control appeared limited Vitals/I&O/Wt Last Vital Signs Temp 98.4 F 01/10/25 14:00 Pulse 75 01/10/25 14:00 Resp 16 01/10/25 14:00 BP 114/76 01/10/25 14:00 Pulse Ox 97 01/10/25 14:00 O2 Del Method Room Air 01/10/25 06:00 Weight last 48 hrs Weight 103.929 kg Data NPU 01/05/25 17:59 01/05/25 17:59 A&P Assessment and plan (1) Complex posttraumatic stress disorder: (2) Dysthymia: (3) Borderline personality disorder: (4) Suicidal ideation: (5) Hallucination: Plan 48-year-old female admitted on a 96-hour hold with past hospitalization about a year ago here with a history of complex PTSD and depression with suicidal ideation with with reported resolution of her homelessness and poor adherence to her medication but worsening symptoms. 1. Continue current medications we will evaluate for changes and some likely increases. Increase Lexapro to 30 mg p.o. daily and will discontinue Zyprexa. Will start Invega and consider discontinuing lithium and Latuda to try to remove clean up the polypharmacy. Started Invega 3 mg p.o. daily and decrease Latuda to 80 mg daily. Decrease lithium to 300mg bid. Continue Lexapro 30mg daily. 2. Encourage individual, group and milieu therapy. 3. Continue every 15 minute checks for safety. 4. Obtain collateral information. PDMP PDMP Reviewed: Not Reviewed Involuntary Hold Information 2 96 Hour Hold: 96 Hour Involuntary Admission: Yes 96 Hour Hold Ending Date: 01/11/25 96 Hour Hold Ending Time: 17:47 Other Hold: Hold End Date: 01/11/25 Attestations NPU 2 Medical Necessity Statement*: Inpatient hospitalization is medically necessary and the clinically appropriate intervention at this time. Medications will be initiated and increased as clinically indicated. Patient's likely length of stay is 4-6 days. Coding Level of Care Code Acute Code for [facility] Fwd Diagnoses Complex posttraumatic stress disorder F43.10 Dysthymia F34.1 Borderline personality disorder F60.3 Suicidal ideation R45.851 Hallucination R44.3
[2025-01-10] MEDS: calcium carbonate 500 mg Chew Tablet 1000 MG PO (17:39)
[2025-01-10 20:06] VITALS: BP 116/80; PULSE 76; RESP 18; TEMP 36.6; O2SAT 97
[2025-01-10] MEDS: prazosin 5 mg Capsule PO (20:39)
[2025-01-10] MEDS: lacosamide 50 mg Tablet 200 MG PO (20:39)
[2025-01-10] MEDS: trazodone 50 mg Tablet PO (20:39)
[2025-01-11 06:00] VITALS: BP 108/72; PULSE 75; RESP 18; TEMP 36.4; O2SAT 98
[2025-01-11] MEDS: escitalopram 10 mg Tablet 30 MG PO (08:53)
[2025-01-11] MEDS: lacosamide 50 mg Tablet 100 MG PO (08:54)
[2025-01-11] MEDS: lurasidone 20 mg Tablet 80 MG PO (08:54)
[2025-01-11] MEDS: paliperidone ER 3 mg Tablet PO (08:54)
[2025-01-11] MEDS: lithium carbonate 300 mg Capsule PO ×2 (08:54→17:07)
[2025-01-11] MEDS: haloperidol 5 mg Tablet PO (08:58)
--- NOTE | 2025-01-11 13:13 | PC.NURSE ---
NEW ORDERS RECEIVED FROM DR. CARUSO TO GIVE DULCULAX 10 MG PO DAILY PRN FOR CONSTIPATION. ORDERS PLACED. PT EDUCATED ON NEW ORDERS.
[2025-01-11 14:00] VITALS: BP 110/76; PULSE 69; RESP 16; TEMP 36.7; O2SAT 97
[2025-01-11] MEDS: diphenhydrAMINE 50 mg Capsule PO (14:40)
--- NOTE | 2025-01-11 16:26 | W.PM.NPUPNS ---
Subjective NPU Subjective: 49-year-old female with a history of borderline personality disorder, atypical psychosis and bipolar disorder admitted with the presence of visual hallucinations. The patient had endorsed that she had continued PTSD related symptoms with periods of dissociation. She had reported having frequent nightmares. She had complained of hearing voices as well. Patient had reported that she had slept better last night. She had continued to endorse that she had unusual perceptions with a feeling that she was passing through a visual doorway that others could not see. She had reported feeling suspicious of others frequently. She had been in agreement with wanting to simplify her medication regimen stating that the Latuda had not been helpful for reducing her atypical psychotic symptoms. She had reported dissociative episodes. Mental Status Exam MSE Comments: This is an obese versus morbidly obese white female in hospital scrubs with limited grooming but adequate eye contact. No abnormal movements except for mild to moderate psychomotor retardation. She was cooperative with exam in mild to moderate distress. Speech was decreased in rate and normal in volume. Mood described as okay. Her affect was mood incongruent, bizarre at times and subdued. Thought process was linear and organized. Thought content: Patient denied suicidal or homicidal ideation currently, there were no delusions reported but some paranoia noted, she endorsed auditory hallucinations and reported seeing doorways and explosions in the air. Attention and concentration were mostly intact and memory appeared mostly reliable but at times seemed chronologically off but no more formally tested. She is alert and oriented x 3. Her insight was limited. Her judgment is impaired. her impulse control appeared limited. Vitals/I&O/Wt Last Vital Signs Temp 98.0 F 01/11/25 14:00 Pulse 69 01/11/25 14:00 Resp 16 01/11/25 14:00 BP 110/76 01/11/25 14:00 Pulse Ox 97 01/11/25 14:00 O2 Del Method Room Air 01/11/25 06:00 Weight last 48 hrs Weight 103.929 kg Data NPU 01/05/25 17:59 01/05/25 17:59 A&P Assessment and plan (1) Complex posttraumatic stress disorder: (2) Dysthymia: (3) Borderline personality disorder: (4) Suicidal ideation: (5) Hallucination: Plan 48-year-old female admitted on a 96-hour hold with past hospitalization about a year ago here with a history of complex PTSD and depression with suicidal ideation with with reported resolution of her homelessness and poor adherence to her medication but worsening symptoms. 1. Continue current medications we will evaluate for changes and some likely increases. Increase prazosin to 6mg at night. Continue Invega 3mg daily. Decrease Latuda to 60 mg daily. Continue lithium to 300mg bid. Continue Lexapro 20mg daily. 2. Encourage individual, group and milieu therapy. 3. Continue every 15 minute checks for safety. 4. Obtain collateral information. Patient signed into hospital voluntarily. PDMP PDMP Reviewed: Not Reviewed Involuntary Hold Information 96 Hour Hold: 96 Hour Involuntary Admission: Yes 96 Hour Hold Ending Date: 01/11/25 96 Hour Hold Ending Time: 17:47 Other Hold: Hold End Date: 01/11/25 Attestations NPU Medical Necessity Statement*: Inpatient hospitalization is medically necessary and the clinically appropriate intervention at this time. Medications will be initiated and increased as clinically indicated. Patient's likely length of stay is 4-6 days. Coding Level of Care Code Acute Code for [facility] Fwd Diagnoses Complex posttraumatic stress disorder F43.10 Dysthymia F34.1 Borderline personality disorder F60.3 Suicidal ideation R45.851 Hallucination R44.3
[2025-01-11 19:52] VITALS: BP 129/78; PULSE 79; RESP 17; TEMP 36.3; O2SAT 93
[2025-01-11] MEDS: lacosamide 50 mg Tablet 200 MG PO (20:46)
[2025-01-11] MEDS: hyDROXYzine 25 mg Capsule 50 MG PO (20:46)
[2025-01-11] MEDS: prazosin 1 mg Capsule PO (20:47)
[2025-01-11] MEDS: trazodone 50 mg Tablet PO (20:47)
[2025-01-11] MEDS: ondansetron 4 MG Tablet PO (20:47)
[2025-01-11] MEDS: prazosin 5 mg Capsule PO (20:47)
[2025-01-12 06:00] VITALS: BP 104/72; PULSE 83; RESP 18; O2SAT 93
[2025-01-12] MEDS: lithium carbonate 300 mg Capsule PO ×2 (08:33→17:47)
[2025-01-12] MEDS: paliperidone ER 3 mg Tablet PO (08:33)
[2025-01-12] MEDS: escitalopram 10 mg Tablet 20 MG PO (08:34)
[2025-01-12] MEDS: lacosamide 50 mg Tablet 100 MG PO (08:34)
[2025-01-12] MEDS: lurasidone 20 mg Tablet 60 MG PO (08:34)
[2025-01-12] MEDS: bisacodyl 5 mg Tablet 10 MG PO (08:37)
[2025-01-12 14:00] VITALS: BP 100/69; PULSE 72; RESP 18; TEMP 36.9; O2SAT 95
--- NOTE | 2025-01-12 17:18 | P.NPUPN_ITS ---
Subjective NPU 2 Subjective: 49-year-old female with a history of bor derline personality disorder, atypical psychosis and bipolar disorder admitted with the presence of visual hallucinations. The patient had continued to report that she had no dreams last night. She had continued to complain of odd perceptions. She did not attributed the use of perceptions to be associated with any seizures in regards to an aura. The patient reported some periods of depression. She reported that she was feeling better. She had been agreeable to signing into the hospital voluntarily. She had reported that her lithium had been the medication that she had taken the longest. She had endorsed a past history of some manic symptoms. She reported no side effects currently from her Invega and reported no worsening of symptoms with the reduction in Latuda. She had reported that she had been functioning independently but reported recently having some increased decline in her ability to care for herself. She had been redirectable on the milieu with no aggression. She did continue to report some dissociative symptoms. Mental Status Exam 2 MSE Comments: This is an obese versus morbidly obese white female in hospital scrubs with limited grooming but adequate eye contact. No abnormal movements except for mild to moderate psychomotor retardation. She was cooperative with exam in mild to moderate distress. Speech was decreased in rate and normal in volume. Mood described as okay. Her affect was mood incongruent, and subdued tonight. Thought process was linear and organized. Thought content: Patient denied suicidal or homicidal ideation currently, there were no delusions reported but some paranoia noted, she endorsed auditory hallucinations and visual hallucinations but did not appear to be responding to internal stimuli. Attention and concentration were mostly intact and memory appeared mostly reliable but at times seemed chronologically off but no more formally tested. She is alert and oriented x 3. Her insight was limited. Her judgment is impaired. her impulse control appeared limited. Vitals/I&O/Wt Last Vital Signs Temp 98.5 F 01/12/25 14:00 Pulse 72 01/12/25 14:00 Resp 18 01/12/25 14:00 BP 100/69 01/12/25 14:00 Pulse Ox 95 01/12/25 14:00 O2 Del Method Room Air 01/12/25 06:00 Data NPU 01/05/25 17:59 01/05/25 17:59 A&P Assessment and plan (1) Complex posttraumatic stress disorder: (2) Dysthymia: (3) Borderline personality disorder: (4) Suicidal ideation: (5) Hallucination: Plan 48-year-old female admitted on a 96-hour hold with past hospitalization about a year ago here with a history of complex PTSD and depression with suicidal ideation with with reported resolution of her homelessness and poor adherence to her medication but worsening symptoms. 1. Continue prazosin to 6mg at night. Continue Invega 3mg daily. Decrease Latuda to 40 mg daily with plan to discontinue. Continue lithium to 300mg bid. Continue Lexapro 20mg daily. 2. Encourage individual, group and milieu therapy. 3. Continue every 15 minute checks for safety. 4. Obtain collateral information. Patient signed into hospital voluntarily. PDMP PDMP Reviewed: Not Reviewed Involuntary Hold Information 2 96 Hour Hold: 96 Hour Involuntary Admission: Yes 96 Hour Hold Ending Date: 01/11/25 96 Hour Hold Ending Time: 17:47 Other Hold: Hold End Date: 01/11/25 Attestations NPU 2 Medical Necessity Statement*: Inpatient hospitalization is medically necessary and the clinically appropriate intervention at this time. Medications will be initiated and increased as clinically indicated. Patient's likely length of stay is 4-6 days. Coding Level of Care Code Acute Code for [facility] Fwd Diagnoses Complex posttraumatic stress disorder F43.10 Dysthymia F34.1 Borderline personality disorder F60.3 Suicidal ideation R45.851 Hallucination R44.3
[2025-01-12] MEDS: magnesium hydroxide 30 mL UDC PO (19:06)
[2025-01-12 20:21] VITALS: BP 127/90; PULSE 80; RESP 17; TEMP 36.7; O2SAT 94
[2025-01-12] MEDS: prazosin 5 mg Capsule PO (21:20)
[2025-01-12] MEDS: lacosamide 50 mg Tablet 200 MG PO (21:20)
[2025-01-12] MEDS: prazosin 1 mg Capsule PO (21:20)
[2025-01-12] MEDS: hyDROXYzine 25 mg Capsule 50 MG PO (21:20)
[2025-01-12] MEDS: trazodone 50 mg Tablet PO (21:20)
[2025-01-13 06:00] VITALS: BP 101/64; PULSE 64; RESP 18; TEMP 36.9; O2SAT 95
[2025-01-13] MEDS: artificial tears Op Soln 15 mL Btl 1 DROP EYE-BOTH (07:53)
[2025-01-13] MEDS: lurasidone 20 mg Tablet 40 MG PO (08:30)
[2025-01-13] MEDS: lithium carbonate 300 mg Capsule PO ×2 (08:30→17:44)
[2025-01-13] MEDS: paliperidone ER 3 mg Tablet PO (08:30)
[2025-01-13] MEDS: escitalopram 10 mg Tablet 20 MG PO (08:30)
[2025-01-13] MEDS: lacosamide 50 mg Tablet 100 MG PO (08:31)
[2025-01-13 10:57] VITALS: BP 109/73; PULSE 72; RESP 16; O2SAT 97
[2025-01-13] MEDS: CLONazepam 1 mg Tablet PO (10:58)
--- NOTE | 2025-01-13 10:59 | PC.NURSE ---
Administered 1mg Klonopin PO to pt for feeling light headed and stated that she feels like a seizure coming on. Pt's current vitals BP 109/73 72heart rate 16 resp 97 O2.
[2025-01-13 14:00] VITALS: BP 118/81; PULSE 73; RESP 16; TEMP 36.4; O2SAT 95
--- NOTE | 2025-01-13 14:36 | P.NPUPN_ITS ---
Subjective NPU 2 Subjective: 49-year-old female with a history of bor derline personality disorder, atypical psychosis and bipolar disorder admitted with the presence of visual hallucinations. The patient did not complain of hallucinations today. She had denied any unusual perceptions at this time. She had reported in the past having mixed episodes of henna. She had also reported a history of ongoing depressed mood as well. She had stated that she had felt a seizure coming on and was given Klonopin earlier today. She reports having continued constipation for the past 3 days. She had been less isolative on the milieu. She reported that she had felt less confused and denied any racing thoughts at this time. Mental Status Exam 2 MSE Comments: This is an obese versus morbidly obese white female in hospital scrubs with limited grooming but adequate eye contact. No abnormal movements except for mild to moderate psychomotor retardation. She was cooperative with exam in mild to moderate distress. Speech was decreased in rate and normal in volume. Mood described as okay. Her affect remained subdued. Thought process was linear and organized. Thought content: Patient denied suicidal or homicidal ideation currently, there were no delusions reported but some paranoia noted. She endorsed auditory hallucinations and visual hallucinations but did not appear to be responding to internal stimuli. Attention and concentration were mostly intact and memory appeared mostly reliable but at times seemed chronologically off but no more formally tested. She is alert and oriented x 3. Her insight was limited. Her judgment is impaired. her impulse control appeared limited. Vitals/I&O/Wt Last Vital Signs Temp 98.4 F 01/13/25 06:00 Pulse 72 01/13/25 10:57 Resp 16 01/13/25 10:57 BP 109/73 01/13/25 10:57 Pulse Ox 97 01/13/25 10:57 O2 Del Method Room Air 01/13/25 10:57 Data NPU 01/05/25 17:59 01/05/25 17:59 A&P Assessment and plan (1) Complex posttraumatic stress disorder: (2) Dysthymia: (3) Borderline personality disorder: (4) Suicidal ideation: (5) Hallucination: Plan 48-year-old female admitted on a 96-hour hold with past hospitalization about a year ago here with a history of complex PTSD and depression with suicidal ideation with with reported resolution of her homelessness and poor adherence to her medication but worsening symptoms. 1. Continue prazosin to 6mg at night. Discontinue latuda today. Continue invega 3mg at night. Continue lithium to 300mg bid. Continue Lexapro 20mg daily. 2. Encourage individual, group and milieu therapy. 3. Continue every 15 minute checks for safety. 4. Obtain collateral information. Patient signed into hospital voluntarily. 5. Soap suds enema, constipation. PDMP PDMP Reviewed: Not Reviewed Involuntary Hold Information 2 96 Hour Hold: 96 Hour Involuntary Admission: Yes 96 Hour Hold Ending Date: 01/11/25 96 Hour Hold Ending Time: 17:47 Other Hold: Hold End Date: 01/11/25 Attestations NPU 2 Medical Necessity Statement*: Inpatient hospitalization is medically necessary and the clinically appropriate intervention at this time. Medications will be initiated and increased as clinically indicated. Patient's likely length of stay is 4-6 days. Coding Level of Care Code Acute Code for [facility] Fwd Diagnoses Complex posttraumatic stress disorder F43.10 Dysthymia F34.1 Borderline personality disorder F60.3 Suicidal ideation R45.851 Hallucination R44.3
[2025-01-13] MEDS: prazosin 5 mg Capsule PO (20:26)
[2025-01-13] MEDS: LORazepam 1 mg Tablet PO (20:26)
[2025-01-13] MEDS: lacosamide 50 mg Tablet 200 MG PO (20:26)
[2025-01-13] MEDS: prazosin 1 mg Capsule PO (20:26)
[2025-01-13] MEDS: trazodone 50 mg Tablet PO (20:26)
[2025-01-13 20:28] VITALS: BP 115/81; PULSE 80; RESP 18; TEMP 36.9; O2SAT 99
--- NOTE | 2025-01-13 20:49 | PC.NURSE ---
RESTING IN BED. AT NURSES STATION AT 1930 WANTING NIGHT TIME MEDS. PT EDUCATED THAT RN WOULD GIVE MEDICATIONS AT 1999. DENIES SI/HI AT THIS TIMES. CONTINUES TO ENDORSE HEARING VOICES AND SEEING THINGS. RATES ANXIETY AND DEPRESSION 06/10. ATIVAN 1 MG GIVEN ORDERED FOR ANXIETY. TRAZODONE 50 MG GIVEN ORDERED FOR INSOMNIA. AFFECT IS FLAT. PT REMAINS CONFUSED WITH DISORGANIZED THOUGHT PROCESS. SUPPORT VOICED.
[2025-01-14] MEDS: artificial tears Op Soln 15 mL Btl 1 DROP EYE-BOTH (05:42)
[2025-01-14 06:00] VITALS: BP 91/55; PULSE 92; RESP 18; TEMP 36.6; O2SAT 95
[2025-01-14] MEDS: paliperidone ER 3 mg Tablet PO (08:17)
[2025-01-14] MEDS: lacosamide 50 mg Tablet 100 MG PO (08:17)
[2025-01-14] MEDS: lithium carbonate 300 mg Capsule PO ×2 (08:17→17:54)
[2025-01-14] MEDS: escitalopram 10 mg Tablet 20 MG PO (08:17)
[2025-01-14 14:00] VITALS: BP 107/77; PULSE 76; RESP 16; TEMP 36.3; O2SAT 96
[2025-01-14] MEDS: magnesium hydroxide 30 mL UDC PO (15:36)
[2025-01-14] MEDS: docusate sodium 100 mg Capsule PO (15:36)
--- NOTE | 2025-01-14 17:25 | P.NPUPN_ITS ---
Subjective NPU 2 Subjective: 49-year-old female with a history of bor derline personality disorder, atypical psychosis and bipolar disorder admitted with the presence of visual hallucinations. The patient had reported continued constipation. She reported no side effects from her medication regimen otherwise. She had reported that she had less periods of dissociation. She reported continued depression describing her mood as 4 out of 10 today. She had reported a history of manic symptoms at times but denied any recent problems with henna over the past few months. She had been isolative on the milieu. Mental Status Exam 2 MSE Comments: This is an obese versus morbidly obese white female in hospital scrubs with limited grooming but adequate eye contact. No abnormal movements except for mild to moderate psychomotor retardation. She was cooperative with exam in mild to moderate distress. Speech was decreased in rate and normal in volume. Mood described as 4/10 Her affect remained flat. Thought process was linear and organized. Thought content: Patient denied suicidal or homicidal ideation currently, there were no delusions reported but some paranoia noted. She endorsed auditory hallucinations and visual hallucinations but did not appear to be responding to internal stimuli. Attention and concentration were mostly intact and memory appeared mostly reliable but at times seemed chronologically off but no more formally tested. She is alert and oriented x 3. Her insight was limited. Her judgment is impaired. her impulse control appeared limited. Vitals/I&O/Wt Last Vital Signs Temp 97.4 F L 01/14/25 14:00 Pulse 76 01/14/25 14:00 Resp 16 01/14/25 14:00 BP 107/77 01/14/25 14:00 Pulse Ox 96 01/14/25 14:00 O2 Del Method Room Air 01/14/25 06:00 Data NPU 01/05/25 17:59 01/05/25 17:59 A&P Assessment and plan (1) Complex posttraumatic stress disorder: (2) Dysthymia: (3) Borderline personality disorder: (4) Suicidal ideation: (5) Hallucination: Plan 48-year-old female admitted on a 96-hour hold with past hospitalization about a year ago here with a history of complex PTSD and depression with suicidal ideation with with reported resolution of her homelessness and poor adherence to her medication but worsening symptoms. 1. Continue prazosin to 6mg at night. Continue invega 3mg at night. Continue lithium to 300mg bid. Continue Lexapro 20mg daily. 2. Encourage individual, group and milieu therapy. 3. Continue every 15 minute checks for safety. 4. Obtain collateral information. Patient signed into hospital voluntarily. 5. Soap suds enema, constipation. PDMP PDMP Reviewed: Not Reviewed Involuntary Hold Information 2 96 Hour Hold: 96 Hour Involuntary Admission: Yes 96 Hour Hold Ending Date: 01/11/25 96 Hour Hold Ending Time: 17:47 Other Hold: Hold End Date: 01/11/25 Attestations NPU 2 Medical Necessity Statement*: Inpatient hospitalization is medically necessary and the clinically appropriate intervention at this time. Medications will be initiated and increased as clinically indicated. Patient's likely length of stay is 2-3 days. Coding Level of Care Code Acute Code for [facility] Fwd Diagnoses Complex posttraumatic stress disorder F43.10 Dysthymia F34.1 Borderline personality disorder F60.3 Suicidal ideation R45.851 Hallucination R44.3
--- NOTE | 2025-01-14 18:25 | PC.NURSE ---
Dr. Hunt requested this RN put in an order for a soap suds enema for the patient due to nothing taken by mouth having any results for days. This RN and FINANCIAL SYSTEMS DIRECTOR, Cinthya, administered the enema and patient tolerated well. After administration she immediately had a bowel movement.
[2025-01-14] MEDS: prazosin 5 mg Capsule PO (20:20)
[2025-01-14] MEDS: prazosin 1 mg Capsule PO (20:20)
[2025-01-14] MEDS: lacosamide 50 mg Tablet 200 MG PO (20:20)
[2025-01-14] MEDS: trazodone 50 mg Tablet PO (20:20)
[2025-01-14] MEDS: LORazepam 1 mg Tablet PO (20:20)
--- NOTE | 2025-01-14 21:25 | PC.NURSE ---
AT NURSES STATION TO WAIT FOR MEDICATIONS. DENIES SI/HI AND AVH AT THIS TIME. CONTINUES TO BE OBSERVED SAYING THINGS THAT DO NOT MAKE SENSE AND HAS CONFUSION AT TIMES, MIXING UP HER WORDS. DISORGANIZED THOUGHT PROCESS CONTINUES. RATES ANXIETY AND DEPRESSION 05/11. ATIVAN 1 MG GIVEN ORDERED FOR ANXIETY. TRAZODONE 50 MG GIVEN ORDERED FOR SLEEP. PT TOOK MEDIATIONS AND THEN WENT TO BED. SUPPORT VOICED.
[2025-01-14 21:30] VITALS: BP 111/80; PULSE 83; RESP 17; TEMP 37; O2SAT 96
[2025-01-15 06:00] VITALS: BP 110/73; PULSE 94; RESP 17; TEMP 36.9; O2SAT 95
[2025-01-15] MEDS: lithium carbonate 300 mg Capsule PO ×2 (08:17→17:32)
[2025-01-15] MEDS: lacosamide 50 mg Tablet 100 MG PO (08:17)
[2025-01-15] MEDS: escitalopram 10 mg Tablet 20 MG PO (08:17)
[2025-01-15] MEDS: paliperidone ER 3 mg Tablet PO (08:18)
[2025-01-15] MEDS: bisacodyl 5 mg Tablet 10 MG PO (08:29)
[2025-01-15] MEDS: artificial tears Op Soln 15 mL Btl 1 DROP EYE-BOTH (09:25)
[2025-01-15 14:00] VITALS: BP 131/87; PULSE 83; RESP 18; TEMP 36.5; O2SAT 94
--- NOTE | 2025-01-15 16:27 | P.NPUPN_ITS ---
Subjective NPU 2 Subjective: 49-year-old female with a history of bor derline personality disorder, atypical psychosis and bipolar disorder admitted with the presence of visual hallucinations. The patient had reported that she had had odd perceptions last night that she described as hallucinations. She had reported that she continued to remain constipated. She had stated that she was not having any current side effects from her medication regimen. She had stated that she felt nauseous today and reported feeling tired. The patient did not appear to have any seizures. She had continued to endorse some PTSD related nightmares but reported that it had lessened with the increase in prazosin. She was able to attend groups today. Mental Status Exam 2 MSE Comments: This is an obese versus morbidly obese white female in hospital scrubs with limited grooming but adequate eye contact. No abnormal movements except for mild psychomotor retardation. She was cooperative with exam in mild distress. Speech was decreased in rate and normal in volume. Mood described as okay. Her affect was restricted in range. Thought process was linear and organized. Thought content: Patient denied suicidal or homicidal ideation currently, there were no delusions reported but some paranoia noted. She endorsed auditory hallucinations and visual hallucinations but did not appear to be responding to internal stimuli. Attention and concentration were mostly intact and memory appeared mostly reliable but at times seemed chronologically off but no more formally tested. She is alert and oriented x 3. Her insight was limited. Her judgment is impaired. her impulse control appeared limited. Vitals/I&O/Wt Last Vital Signs Temp 97.7 F 01/15/25 14:00 Pulse 83 01/15/25 14:00 Resp 18 01/15/25 14:00 BP 131/87 01/15/25 14:00 Pulse Ox 94 01/15/25 14:00 O2 Del Method Room Air 01/14/25 06:00 Data NPU 01/05/25 17:59 01/05/25 17:59 A&P Assessment and plan (1) Complex posttraumatic stress disorder: (2) Dysthymia: (3) Borderline personality disorder: (4) Suicidal ideation: (5) Hallucination: Plan 48-year-old female admitted on a 96-hour hold with past hospitalization about a year ago here with a history of complex PTSD and depression with suicidal ideation with with reported resolution of her homelessness and poor adherence to her medication but worsening symptoms. 1. Continue prazosin to 6mg at night. Increase invega to 6mg at night. Continue lithium to 300mg bid. Continue Lexapro 20mg daily. 2. Encourage individual, group and milieu therapy. 3. Continue every 15 minute checks for safety. 4. Obtain collateral information. Patient signed into hospital voluntarily. 5. Soap suds enema, constipation. PDMP PDMP Reviewed: Not Reviewed Involuntary Hold Information 2 96 Hour Hold: 96 Hour Involuntary Admission: Yes 96 Hour Hold Ending Date: 01/11/25 96 Hour Hold Ending Time: 17:47 Other Hold: Hold End Date: 01/11/25 Attestations NPU 2 Medical Necessity Statement*: Inpatient hospitalization is medically necessary and the clinically appropriate intervention at this time. Medications will be initiated and increased as clinically indicated. Patient's likely length of stay is 3-5 days. Coding Level of Care Code Acute Code for [facility] Fwd Diagnoses Complex posttraumatic stress disorder F43.10 Dysthymia F34.1 Borderline personality disorder F60.3 Suicidal ideation R45.851 Hallucination R44.3
[2025-01-15] MEDS: bisacodyl 10 mg Supp PR (16:50)
[2025-01-15] MEDS: hyDROXYzine 25 mg Capsule 50 MG PO (20:31)
[2025-01-15] MEDS: lacosamide 50 mg Tablet 200 MG PO (20:32)
[2025-01-15] MEDS: prazosin 5 mg Capsule PO (20:32)
[2025-01-15] MEDS: prazosin 1 mg Capsule PO (20:32)
[2025-01-15] MEDS: trazodone 50 mg Tablet PO (20:32)
[2025-01-15 22:00] VITALS: BP 102/65; PULSE 79; RESP 17; TEMP 37.2; O2SAT 96
[2025-01-16 06:00] VITALS: BP 120/75; PULSE 89; RESP 16; TEMP 36.6; O2SAT 96
[2025-01-16] MEDS: lacosamide 50 mg Tablet 100 MG PO (08:31)
[2025-01-16] MEDS: hyDROXYzine 25 mg Capsule 50 MG PO ×2 (08:31→20:41)
[2025-01-16] MEDS: escitalopram 10 mg Tablet 20 MG PO (08:32)
[2025-01-16] MEDS: lithium carbonate 300 mg Capsule PO ×2 (08:32→17:25)
[2025-01-16] MEDS: docusate sodium 100 mg Capsule PO (08:32)
[2025-01-16] MEDS: paliperidone ER 6 mg Tablet PO (08:32)
--- NOTE | 2025-01-16 08:41 | PC.NURSE ---
IN DAY ROOM EATING. DENIES PAIN. DENIES SI/HI AND AVH AT THIS TIME. CONTINUES TO BE INTRUSIVE AT TIMES. RATES ANXIETY 4/10, VISTARIL 50 MG GIVEN ORDERED FOR ANXIETY. RATES DEPRESSION 2/10. IN BETTER SPIRITS TODAY, VERY TALKATIVE AND STAYS AT THE NURSES STATION FOR EXTENDED PERIODS OF TIME SPEAKING TO STAFF. REPORTS BM 01/15/25 REQUESTED COLACE AND RN DID ADMINISTER IT. ALL QUESTIONS ANSWERED AND SUPPORT VOICED.
--- NOTE | 2025-01-16 12:27 | P.NPUPN_ITS ---
Subjective NPU 2 Subjective: 49-year-old female with a history of bor derline personality disorder, atypical psychosis and bipolar disorder admitted with the presence of visual hallucinations. The patient had reported that she felt better. She reported no side effects from her current medication regimen. She had reported fleeting depression. She reported no feelings of hopelessness currently. She had reported that her thoughts had seemed clear. She denied any nausea today. There was no evidence of any seizures on the unit as well. She had reported adequate sleep. Mental Status Exam 2 MSE Comments: This is an obese versus morbidly obese white female in hospital scrubs with limited grooming but adequate eye contact. No abnormal movements except for mild psychomotor retardation. She was cooperative with exam in mild distress. Speech was more productive in rate and normal in volume. Mood described as better, Her affect was brighter today but still mildly restricted. Thought process was linear and organized. Thought content: Patient denied suicidal or homicidal ideation currently, there were no delusions reported but some paranoia noted. She denied auditory hallucinations and visual hallucinations and did not appear to be responding to internal stimuli. Attention and concentration were mostly intact and memory appeared mostly reliable but at times seemed chronologically off but no more formally tested. She is alert and oriented x 3. Her insight was limited. Her judgment is impaired. her impulse control appeared limited. Vitals/I&O/Wt Last Vital Signs Temp 97.8 F 01/16/25 06:00 Pulse 89 01/16/25 06:00 Resp 16 01/16/25 06:00 BP 120/75 01/16/25 06:00 Pulse Ox 96 01/16/25 06:00 O2 Del Method Room Air 01/14/25 06:00 Data NPU 01/05/25 17:59 01/05/25 17:59 A&P Assessment and plan (1) Complex posttraumatic stress disorder: (2) Dysthymia: (3) Borderline personality disorder: (4) Suicidal ideation: (5) Hallucination: Plan 48-year-old female admitted on a 96-hour hold with past hospitalization about a year ago here with a history of complex PTSD and depression with suicidal ideation with with reported resolution of her homelessness and poor adherence to her medication but worsening symptoms. 1. Continue prazosin to 6mg at night. Continue invega to 6mg at night. Continue lithium to 300mg bid. Continue Lexapro 20mg daily. 2. Encourage individual, group and milieu therapy. 3. Continue every 15 minute checks for safety. 4. Obtain collateral information. Patient signed into hospital voluntarily. 5. Soap suds enema, constipation. PDMP PDMP Reviewed: Not Reviewed Involuntary Hold Information 2 96 Hour Hold: 96 Hour Involuntary Admission: Yes 96 Hour Hold Ending Date: 01/11/25 96 Hour Hold Ending Time: 17:47 Other Hold: Hold End Date: 01/11/25 Attestations NPU 2 Medical Necessity Statement*: Inpatient hospitalization is medically necessary and the clinically appropriate intervention at this time. Medications will be initiated and increased as clinically indicated. Patient's likely length of stay is 3-5 days. Coding Level of Care Code Acute Code for [facility] Fwd Diagnoses Complex posttraumatic stress disorder F43.10 Dysthymia F34.1 Borderline personality disorder F60.3 Suicidal ideation R45.851 Hallucination R44.3
[2025-01-16 14:00] VITALS: BP 119/84; PULSE 79; RESP 18; TEMP 36.7; O2SAT 95
[2025-01-16 20:38] VITALS: BP 119/86; PULSE 85; RESP 18; TEMP 36.7; O2SAT 96
[2025-01-16] MEDS: lacosamide 50 mg Tablet 200 MG PO (20:40)
[2025-01-16] MEDS: prazosin 1 mg Capsule PO (20:41)
[2025-01-16] MEDS: prazosin 5 mg Capsule PO (20:41)
[2025-01-16] MEDS: trazodone 50 mg Tablet PO (20:41)
[2025-01-16] MEDS: artificial tears Op Soln 15 mL Btl 1 DROP EYE-BOTH (20:43)
[2025-01-16] MEDS: calcium carbonate 500 mg Chew Tablet 1000 MG PO (20:55)
[2025-01-17 06:00] VITALS: BP 103/72; PULSE 91; RESP 18; TEMP 36.6; O2SAT 96; BMI 42.3
[2025-01-17] MEDS: paliperidone ER 6 mg Tablet PO (08:17)
[2025-01-17] MEDS: escitalopram 10 mg Tablet 20 MG PO (08:17)
[2025-01-17] MEDS: lacosamide 50 mg Tablet 100 MG PO (08:17)
[2025-01-17] MEDS: lithium carbonate 300 mg Capsule PO (08:17)
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
[2025-01-17 12:56] VITALS: BP 131/71; PULSE 81; RESP 16; TEMP 36.8; O2SAT 98
== END 2025-01-17 13:10 | disposition home or self-care (01) | DRG 882 ==
LOC: ER 18:58 → NP 20:35
PROVIDERS: Admitting Provider Psychiatry & Neurology Psychiatry; Emergency Provider Emergency Medicine; PCP Family Medicine; Visit Provider Psychiatry & Neurology Psychiatry
DX: F43.10 Post-traumatic stress disorder, unspecified (principal); G40.209 Localization-related (focal) (partial) symptomatic epilepsy and epileptic syndromes with complex partial seizures, not intractable, without status epilepticus; Z68.41 Body mass index [BMI] 40.0-44.9, adult; F60.3 Borderline personality disorder; F34.1 Dysthymic disorder; F31.9 Bipolar disorder, unspecified; K90.0 Celiac disease; Z79.899 Other long term (current) drug therapy; E66.01 Morbid (severe) obesity due to excess calories; G93.32 Myalgic encephalomyelitis/chronic fatigue syndrome; Z90.49 Acquired absence of other specified parts of digestive tract; Z81.8 Family history of other mental and behavioral disorders; Z88.8 Allergy status to other drugs, medicaments and biological substances; Z90.721 Acquired absence of ovaries, unilateral; Z87.891 Personal history of nicotine dependence; Z62.898 Other specified problems related to upbringing; K59.00 Constipation, unspecified
CPT/HCPCS: 36415; 80053; 80178; 80306; 80307; 85025; 93005; 97150; 97165; 99285; Q0162; Q0163

== ENCOUNTER → 2025-02-11 15:31 | Outpatient (BNVA) | payer MEDICAID, SELFPAY ==
[2024-08-26 13:46] VITALS: BP 124/73; BMI 40.7
== END ==
PROVIDERS: PCP Family Medicine; Visit Provider Nurse Practitioner Family
DX: Z11.3 Encounter for screening for infections with a predominantly sexual mode of transmission (principal)
CPT/HCPCS: 87491; 87591; 87661

== ENCOUNTER 2025-02-12 14:11 | Outpatient (CLI) | payer MEDICAID, SELFPAY ==
[2024-08-26 13:46] VITALS: BP 124/73; BMI 40.7
--- NOTE | 2025-02-12 14:20 | MM_ITS ---
WS: [id number] BILATERAL 3D TOMOSYNTHESIS DIGITAL SCREENING MAMMOGRAPHY WITH CAD CLINICAL INFORMATION: screening HISTORY: Screening mammogram. No current complaints. COMPARISON: None. TECHNIQUE: Bilateral CC and MLO views. FINDINGS: Scattered fibroglandular densities bilaterally. No suspicious focal mass, asymmetry, calcifications, or architectural distortion. No evidence of malignancy. A few tiny incidental punctate calcifications MM/MM scr tomosynthesis [id number] IMPRESSION: DENSITY: There are scattered areas of fibroglandular density. BI-RADS: 2 - Benign. FOLLOW UP: 1 Year Follow-up Recommend return to annual screening mammography.
== END 2025-02-12 14:12 | disposition home or self-care (01) ==
LOC: RAD 14:13
PROVIDERS: PCP Family Medicine; Visit Provider Family Medicine
DX: Z12.31 Encounter for screening mammogram for malignant neoplasm of breast (principal); R92.323 Mammographic fibroglandular density, bilateral breasts; R92.1 Mammographic calcification found on diagnostic imaging of breast
CPT/HCPCS: 77063; 77067

== ENCOUNTER 2025-02-28 10:13 | Emergency (ER) | payer MEDICAID, SELFPAY ==
[2024-08-26 13:46] VITALS: BP 124/73; BMI 40.7
[2025-02-28 10:29] VITALS: BP 144/78; PULSE 86; TEMP 36.9; O2SAT 93; BMI 41.5
[2025-02-28 13:45] VITALS: BP 145/79; PULSE 63; RESP 16; O2SAT 96
--- NOTE | 2025-02-28 13:45 | ED_ITS ---
HPI - Skin/Abscess/Foreign Bdy 2 General: Chief complaint: Skin/Abscess/Foreign Body Stated complaint: rash on hands, arms, and feet Time Seen by Provider: 02/28/25 13:38 History of Present Illness: 49-year-old female who presents emergenc y room with a rash. Says it has been there for about a year, but today the lesions on her fingers have become more red and started to blister. Related Data Previous Rx's ?Medication ?Instructions ?Recorded bisacodyl 5 mg tablet,delayed 10 mg (2 x 5 mg) PO ARLETTE Y PRN 01/16/25 release Constipation 30 days #60 tab s paliperidone 6 mg tablet,extended 6 mg PO DAILY 30 day s #30 tabs 01/16/25 release 24 hr prazosin 1 mg capsule 1 mg PO BEDTIME 30 days #30 caps 01/16/25 prazosin 5 mg capsule 5 mg PO BEDTIME 30 days #30 caps 01/16/25 escitalopram oxalate 20 mg tablet 20 mg PO DAILY #30 t abs 02/01/25 (Lexapro) lorazepam 1 mg tablet 1 mg PO BID PRN anxiety #60 tabs 02/01/25 lacosamide 200 mg tablet 200 mg PO BEDTIME #30 tabs 0 02/02/25 lacosamide 50 mg tablet 100 mg (2 x 50 mg) PO ONCE # 60 tabs 02/18/25 cephalexin 500 mg tablet 500 mg PO TID 7 days #21 tab s 02/28/25 clotrimazole-betamethasone 1 1 applic topical BID 2 we eks #45 02/28/25 %-0.05 % topical cream grams dexamethasone 6 mg tablet 6 mg PO DAILY 5 days #5 tabs 02/28/25 Allergies Allergy/AdvReac Type Severity Reaction Status Date / Time lamotrigine Allergy Mild rash Verified 02/28/25 10:34 phenylalanine Allergy ADR-Faintin Verified 02/28/25 10:34 g Review of Systems 2 Narrative: Constitutional symptoms: Negative except as documented in HPI. Skin symptoms: Negative except as documented in HPI. Eye symptoms: Negative except as documented in HPI. ENMT symptoms: Negative except as documented in HPI. Respiratory symptoms: Negative except as documented in HPI. Cardiovascular symptoms: Negative except as documented in HPI. Gastrointestinal symptoms: Negative except as documented in HPI. Genitourinary symptoms: Negative except as documented in HPI. Musculoskeletal symptoms: Negative except as documented in HPI. Neurologic symptoms: Negative except as documented in HPI. Psychiatric symptoms: Negative except as documented in HPI. Endocrine symptoms: Negative except as documented in HPI. PFSH ED 2 PFSH: Medical History [facility]ley use Psychiatric care Bipolar 2 disorder Bipolar disorder Chronic fatigue syndrome Celiac disease Seizure disorder Borderline personality disorder Dysthymia Complex posttraumatic stress disorder Surgical History Hx of cholecystectomy Hx of removal of ovary Family History Other Bipolar disorder Depression Suicide Social History Smoking and tobacco/nicotine status: former use of tobacco/nicotine Alcohol intake: never Substance/Drug Use: former Adopted: No Caregiver/support person: No Lives independently: Yes Household members: other Details: [place] currently Housing: Other Details: [place] Marital status: Single Number of children: 1 Number of grandchildren: 0 Highest education level completed: High School Graduate service: No Current occupational status: other Details: trying to get disability Current occupational exposures/hazards: No Pets and animals: Yes Pets & animals: cat(s) Leisure activites: music and other Leisure activities details: likes to make playlist Sexually active: No Do you think of yourself as: Lesbian/Shelton/Homosexual Current gender identity: Female Cecille/Muslim: Spiritism Special cecille needs: No Agree to transfusion: Yes Female Reproductive History: Para: 1 Spontaneous abortions: No Physical Exam 2 Narrative: EXAM NARRATIVE: General: Alert, no acute distress. Skin: warm and dry. Lesions on ankle and finger as in pictures below. Head: Normocephalic Neck: Trachea midline Eye: Extraocular movements are intact. Ears, nose, mouth and throat: Oral mucosa moist Respiratory: Respirations are non-labored Musculoskeletal: Normal ROM Neurological: Alert and oriented, No focal neurological deficit observed. Psychiatric: Cooperative, appropriate mood & affect. Course 2 Vital Signs: Vital signs: Vital Signs Temperature 98.4 F 02/28/25 10:29 Pulse Rate 86 02/28/25 10:29 Blood Pressure 144/78 02/28/25 10:29 Pulse Oximetry 93 03/30/25 10:29 Oxygen Delivery Me thod Room Air 02/28/25 10:29 MDM - Skin/Abscess/Foreign Bdy Medicial Decision Making Assessment and plan: Rash ?Given chronicity of this I am a bit unclear on what it may be. Appears a bit fungal so I am putting her on some clotrimazole cream with some steroid. Doing a steroid burst and as the rash is suddenly change may have a little bit of infection so placing on some Keflex as well. - Discharged home - Discussed plan with patient. Answered any questions. - Evaluation and treatment of this problem were appropriate in the emergency setting. No radiology studies performed this visit Discharge Plan Discharge Patient Disposition: Home Clinical Impression: Rash Condition: Stable Prescriptions: New dexamethasone 6 mg tablet 6 mg PO DAILY 5 Days Qty: 5 0RF cephalexin 500 mg tablet 500 mg PO TID 7 Days Qty: 21 0RF clotrimazole-betamethasone 1-0.05 % cream 1 applic topical BID 14 Days Qty: 45 0RF No Action escitalopram oxalate [Lexapro] 20 mg tablet 20 mg PO DAILY Qty: 30 1RF lorazepam 1 mg tablet 1 mg PO BID PRN (Reason: anxiety) Qty: 60 0RF lacosamide 200 mg tablet 200 mg PO BEDTIME Qty: 30 5RF lacosamide 50 mg tablet 100 mg PO ONCE Qty: 60 5RF bisacodyl 5 mg Tablet,Delayed Release (Dr/Ec) 10 mg PO DAILY PRN (Reason: Constipation) 30 Days Qty: 60 1RF paliperidone 6 mg Tablet Extended Release 24 Hr 6 mg PO DAILY 30 Days Qty: 30 1RF prazosin 1 mg Capsule 1 mg PO BEDTIME 30 Days Qty: 30 1RF prazosin 5 mg capsule 5 mg PO BEDTIME 30 Days Qty: 30 1RF Discharge Orders: Discharge ED (Routine); Ordered 02/28/25 Ordered By: Trice Ledesma Referrals: Matthew Argueta MD [Primary Care Provider] - Discharge Diet: Usual diet Discharge Activity: Increase activity as tolerated Patient Instructions: Acute Rash (ED), Opioid Safety, Pain Management Activity Restrictions/Additional Instructions: Thank you for choosing [facility] for your healthcare needs today. Please realize this is an emergency room and that we are providing you with a medical screening exam and this may not be complete and all inclusive of all the testing and or work up that you may need to determine your ailment or severity of your illness. You have been screened and evaluated and felt safe for discharge. Health conditions do change or evolve sometimes and as such it is important that you follow up with your Primary Doctor to be re checked, 3-5 days is a general good time frame for follow up. You are always welcome to return to the ED for re assessment if your symptoms are worsening or you have new concerns Print Language: Georgian Coding Level of Care Code ED Quality Assurance Practice Manager for Angela Wade
[2025-02-28 13:57] VITALS: BP 138/93; PULSE 62; RESP 16; O2SAT 96
== END 2025-02-28 13:56 | disposition home or self-care (01) ==
PROVIDERS: Emergency Provider Emergency Medicine; PCP Family Medicine
DX: R21 Rash and other nonspecific skin eruption (principal); Z87.891 Personal history of nicotine dependence
CPT/HCPCS: 99283

== ENCOUNTER → 2025-07-29 10:06 | Outpatient (BNVA) | payer MEDICAID, SELFPAY ==
[2024-08-26 13:46] VITALS: BP 124/73; BMI 40.7
== END ==
PROVIDERS: PCP Family Medicine; Visit Provider Obstetrics & Gynecology
DX: N95.0 Postmenopausal bleeding (principal)
CPT/HCPCS: 88305

== ENCOUNTER → 2025-08-25 13:18 | Outpatient (BNVA) | payer MEDICAID, SELFPAY ==
[2024-08-26 13:46] VITALS: BP 124/73; BMI 40.7
== END ==
PROVIDERS: PCP Family Medicine; Visit Provider Nurse Practitioner
DX: Z79.899 Other long term (current) drug therapy (principal)
CPT/HCPCS: 80061; 83036